=== PATIENT | male | born 1975 | race Caucasian/White ===

== ENCOUNTER → 2019-02-18 10:08 | Outpatient (CLI) | payer OTHER, SELFPAY ==
--- NOTE | 2019-02-18 | DI.RAD.S_ITS ---
PROCEDURE: XR SHOULDER LT MIN 2V INDICATIONS: left shoulder pain TECHNIQUE: 3 views of the shoulder were acquired. COMPARISON: None. FINDINGS: Bones: No fractures or dislocations. No suspicious bony lesions. Visualized ribs appear intact. Mild AC joint degeneration. There is also glenohumeral degenerative sclerosis and spurring. A possible sub-5 mm bone island projecting in the glenoid although cannot exclude loose body could be further assessed with cross-sectional imaging Soft tissues: No suspicious soft tissue calcifications. IMPRESSION: Possible glenoid bone island versus intra-articular loose body. This could be further assessed with cross-sectional imaging as clinically warranted Left shoulder joint degeneration. If the patient's pain or other symptoms persist, consider further evaluation with MRI Dictated by: Mayo Hawkins M.D. on 02/18/2019 at 10:38 Approved by: Mayo Hawkins M.D. on 02/18/2019 at 10:40
== END ==
PROVIDERS: Visit Provider Family Medicine
DX: M25.512 Pain in left shoulder (principal); M19.012 Primary osteoarthritis, left shoulder
CPT/HCPCS: 73030

== ENCOUNTER 2019-11-23 12:45 | Outpatient (RCR) | payer OTHER, SELFPAY ==
--- NOTE | 2019-09-07 14:45 | PT.OIE ---
Current Diagnoses Left lower quadrant pain (09/01/19) Past Medical History (Last Updated 06/23/19 @ 10:31 by Jaqueline Gomez MD) Abdominal cramps (Acute) Abdominal pain (Acute) Anxiety (Acute) Gastroenteritis (Acute) GERD (gastroesophageal reflux disease) (Acute) Inguinal hernia (Acute) Lesion of skin of scalp (Acute) Neoplasm of skin (Acute) Peptic ulcer (Acute) Shoulder pain (Acute) Sinusitis (Acute) Urethritis (Acute) Visit Care Team Role Provider Type Sana Stuart MD Primary Care Provider Physician Specialty: Family Practice Address: [address] [place] [address], [facility] [place], [place], [facility] Email: [email or web address] Jaqueline Gomez MD Attending Provider Physician Referring Provider Specialty: General Surgery Address: [address] [place] [address] Email: [email or web address] Physical Therapy Initial Evaluation PT-OP-A Visit Information Start: 08/31/19 16:43 Freq: Status: Active Protocol: Document 09/01/19 10:16 [facility] (Rec: 09/01/19 10:27 [facility] [id number]) Out-Patient Physical Therapy Visit Information Visit Information Visit Type Initial Evaluation Visit Start Time 09:00 Visit Stop Time 09:50 Total Visit Minutes 50 Visit Number 1 Evaluation Information Evaluation Date 09/01/19 PT-OP-B Current Condition Start: 08/31/19 16:43 Freq: Status: Active Protocol: Document 09/01/19 10:16 [facility] (Rec: 09/01/19 10:27 [facility] [id number]) Current Condition History of Current Condition Onset Date March 2019 Current Complaints left sided groin pain History of Current Condition Haja reports that in March he woke up with pain in the left groin. He also had intestinal discomfort at the same time that included a bad bout of diarrhea that went on for a few days. 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 He was given a course of antibiotics that seemed to calm down his acute symptoms. At this point Haja reports he can experience sharp left sided groin pain after work related duties which at times can involve heavy lifting. Or even after lifting his kids at home. He can also have pain after running. He likes to run 4 miles 3-4 times per week. He had been experiencing pain with eccentric abdominal exercises which he has modified at this point to help relieve the pain . Lencho also reports that he has a history of psoas tightness and has had massage therapy for the psoas in the past. He notes that possibly his symptoms have been going on for longer but because he wasn't in acute pain he did really think about his symptoms. At this point he will try a course of PT prior to considering a surgical correction of the hernias. Prior Treatments and Tests History of colonoscopy in 2018 which was negative except for a few benign polyps. Treatment Goals Patient/Caregiver Goals Treatment goals for Haja include reducing left groin pain and allowing him to continue with his activities of running and work related activities. Current Functional Impairments (Reported) Functional Limitations- Recreation/ pain with heavy lifting Hobbies activities and after running activities PT-OP-F Manual Assessment Start: 08/31/19 16:43 Freq: Status: Active Protocol: Document 09/07/19 14:17 [facility] (Rec: 09/07/19 14:29 [facility] [id number]) Manual Assessments Soft Tissue Assessment Soft Tissue Mobility Assessment With manual examination today there is tightness in the left lower quadrant of the abdominal fascia and areas of the descending colon. There are restrictions in the iliopsoas in the region of the inguinal ligament. Tightness in the left quadriceps muscle and attachment at the ASIS PT-OP-J Posture/Palpation/Skin Start: 08/31/19 16:43 Freq: Status: Active Protocol: Document 09/07/19 14:17 [facility] (Rec: 09/07/19 14:29 [facility] [id number]) Palpation Assessment Location Three Palpation Location iliacus muscle Palpation Findings Soft Tissue Tightness, Tenderness Two Palpation Location psoas major Palpation Findings Soft Tissue Tightness, Tenderness One Palpation Location left side inguinal ligament tenderness Palpation Findings Tenderness PT-OP-K Range of Motion Start: 08/31/19 16:43 Freq: Status: Active Protocol: Document 09/07/19 14:17 [facility] (Rec: 09/07/19 14:29 [facility] [id number]) Lumbar Spine Range of Motion Lumbar Spine Active Testing Position Standing Comments WNL Hip Goniometric Range of Motion Hip Right Extension 15 Left Testing Position Supine Extension 10 Hip ROM Limitations Hip ROM Limitations Soft Tissue Tightness Comments decreased hip extension on the left as compared to the right PT-OP-T Assessment and Plan Start: 08/31/19 16:43 Freq: Status: Active Protocol: Document 09/06/19 14:17 [facility] (Rec: 09/07/19 14:29 [facility] [id number]) Physical Therapy Assessment Impairments Impairments Activity Tolerance,Functional Activities,Pain,ROM,Soft Tissue Mobility Goals Three Impairment Myofascial tightness in the left abdominal wall and left lower quadrant Crimp Setter Goal (LTG) Improve mobility of the fascia over the left side of the abdominal wall and pelvis to release any adhesions that may be resting ROM and creating pain in this region LTG Duration 8 weeks Two Impairment left anterior groin pain rated 2/10, aggravated with running and lifting Jail Goal (LTG) Slade notes a reduction of pain with MFR, stretches, and core stabilization exercises LTG Duration 8 weeks One Impairment decreased flexibility left greater than right iliopsoas, iliacus, quadriceps Short Term Goal (STG) Slade has been given a home stretching program for the left anterior hip to help take pressure off the anterior groin STG Duration 4 weeks Assessment Summary Assessment Slade presents to physical therapy today with symptoms of left sided lower abdomen and groin pain since March 2019. He did have a CT scan which showed no clear indication for his pain but did show 2 small injuinal hernias consistent with spermatic cord lipomas. He was initially treated with rest and NSAIDS's for inguinal ligament strain which did help some but hasn't fully resolved his pain. He does note that at the time of pain he also had a bout of gastrointestional symptoms and was diagnosed with diverticulitis. He does still complain of intermittent bloating. His pain does increase after running and with heavy lifting activities. With examination today I am unable to feel a bulge in the inguinal region with abdominal tighening. He is however restricted in the fascia in the left abdominal quadrant, area of the sigmoid colon, and his posoas major is tight and guarded. He does have decreased hip extension on the left as compared to the right . Slade was given a hip stretch today to try and lengthen the aimee major that runs under the inguinal ligament. I also began working on core stabilization. Slade may also benefit from working on releasing the fascia in the abdominal wall especially on the left side where he is tight. I will also work on releasing his quads as the attach at the ASIS where the inguinal ligament also attaches. Physical Therapy Plan Frequency and Duration Frequency of Treatment 2x/Week Duration of Treatment 8 Plan of Care Start Date 09/07/19 Plan of Care End Date 11/02/19 Therapeutic Interventions Therapeutic Interventions Home Exercise Program,Manual Therapy,Neuromuscular Re- education,Patient/Caregiver Education,Self-Care/Home Management,Soft Tissue Mobilization,Therapeutic Exercises Next Visit Focus/Plan Next Note Type Treatment Note Next Visit Plan begin with MFR over the left iliopsoas and lower abdominal wall, pt to be given hip stretches for hip for improved length of the iliopsoas. Pt will be educated on core stability exercises for SI joint stabilization.
--- NOTE | 2019-09-07 14:48 | PT.OPPOC ---
Physical, Occupational & Speech Therapy At [facility] Current Diagnoses Left lower quadrant pain (09/01/19) Visit Care Team Role Provider Type Sana Stuart MD Primary Care Provider Physician Specialty: Family Practice Address: [address] [place] [address], [address], [place], [address] Email: [email or web address] Jaqueline Gomez MD Attending Provider Physician Referring Provider Specialty: General Surgery Address: [address] [place] [address], [address] Email: [email or web address] Plan Of Care PT-OP-T Assessment and Plan Start: 08/31/19 16:43 Freq: Status: Active Protocol: Document 09/06/19 14:17 [facility] (Rec: 09/07/19 14:29 [facility] [id number]) Physical Therapy Assessment Impairments Impairments Activity Tolerance,Functional Activities,Pain,ROM,Soft Tissue Mobility Goals Three Impairment Myofascial tightness in the left abdominal wall and left lower quadrant Intermediate Goal (LTG) Improve mobility of the fascia over the left side of the abdominal wall and pelvis to release any adhesions that may be resting ROM and creating pain in this region LTG Duration 8 weeks Two Impairment left anterior groin pain rated 2/10, aggravated with running and lifting Intermediate Goal (LTG) Slade notes a reduction of pain with MFR, stretches, and core stabilization exercises LTG Duration 8 weeks One Impairment decreased flexibility left greater than right iliopsoas, iliacus, quadriceps Short Term Goal (STG) Slade has been given a home stretching program for the left anterior hip to help take pressure off the anterior groin STG Duration 4 weeks Assessment Summary Assessment Slade presents to physical therapy today with symptoms of left sided lower abdomen and groin pain since March 2019. 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 He was initially treated with rest and NSAIDS's for inguinal ligament strain which did help some but hasn't fully resolved his pain. He does note that at the time of pain he also had a bout of gastro intestinal symptoms and was diagnosed with diverticulitis. He does still complain of intermittent bloating. His pain does increase after running and with heavy lifting activities. With examination today I am unable to feel a bulge in the inguinal region with abdominal tightening. He is however restricted in the fascia in the left abdominal quadrant, area of the sigmoid colon, and his psoas major is tight and guarded. He does have decreased hip extension on the left as compared to the right . Slade was given a hip stretch today to try and lengthen the psoas major that runs under the inguinal ligament. I also began working on core stabilization. Slade may also benefit from working on releasing the fascia in the abdominal wall especially on the left side where he is tight. I will also work on releasing his quads as the attach at the ASIS where the inguinal ligament also attaches. Physical Therapy Plan Frequency and Duration Frequency of Treatment 2x/Week Duration of Treatment 8 Plan of Care Start Date 09/07/19 Plan of Care End Date 11/02/19 Therapeutic Interventions Therapeutic Interventions Home Exercise Program,Manual Therapy,Neuromuscular Re- education,Patient/Caregiver Education,Self-Care/Home Management,Soft Tissue Mobilization,Therapeutic Exercises Next Visit Focus/Plan Next Note Type Treatment Note Next Visit Plan begin with MFR over the left iliopsoas and lower abdominal wall, pt to be given hip stretches for hip for improved length of the iliopsoas. Pt will be educated on core stability exercises for SI joint stabilization. Plan of Care Dates Plan of Care Start Date 09/07/19 Plan of Care End Date 11/02/19 Electronically Signed by: Nicole Pennington, PT 09/07/19 2384 Please Sign and Return: I have reviewed this Plan of Care and certify that the skilled therapy services above are required to meet the patient?s needs. Physician Signature Date Printed Name and Credentials Clinical Instructor Signature Printed Name and Credentials
--- NOTE | 2019-09-08 17:42 | PT.OTN ---
Current Diagnoses Left lower quadrant pain (09/08/19) Physical Therapy Treatment Note PT-OP-A Visit Information Start: 08/31/19 16:43 Freq: Status: Active Protocol: Document 09/08/19 17:35 [facility] (Rec: 09/08/19 17:42 [facility] [id number]) Out-Patient Physical Therapy Visit Information Visit Information Visit Type Treatment Note Visit Start Time 09:00 Visit Stop Time 09:45 Total Visit Minutes 45 Visit Number 2 PT-OP-B Current Condition Start: 08/31/19 16:43 Freq: Status: Active Protocol: Document 09/01/19 10:16 [facility] (Rec: 09/01/19 10:27 [facility] [id number]) Current Condition History of Current Condition Onset Date March 2019 Current Complaints left sided groin pain History of Current Condition Haja reports that in March he woke up with pain in the left groin. He also had intestional discomfort at the same time that included a bad bout of diarrhea that went on for a few days. 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 He was given a course of antibiotics that seemed to calm down his acute symptoms. At this point Haja reports he can experience shart left sided groin pain after work related duties which at times can involve heavy lifting. Or even after lifting his kids at home. He can also have pain after running. He likes to run 4 miles 3-4 times per week. He had been experiencing pain with eccentric abdominal exercises which he has modified at this point to help relieve the pain . Lencho also reports that he has a history of psoas tightness and has had massage therapy for the aimee in the past. He notes that possibly his symptoms have been going on for longer but because he wasn't in acute pain he did really think about his symptoms. At this point he will try a course of PT prior to considering a surgical correction of the hernias. Prior Treatments and Tests History of colonoscopy in 2018 which was negative except for a few benign polyps. Treatment Goals Patient/Caregiver Goals Treatment goals for Haja include reducing left groin pain and allowing him to continue with his activities of running and work related activities. Current Functional Impairments (Reported) Functional Limitations- Recreation/ pain with heavy lifting Hobbies activies and after running activities PT-OP-C Subjective Start: 08/31/19 16:43 Freq: Status: Active Protocol: Document 09/08/19 17:35 [facility] (Rec: 09/08/19 17:42 [facility] [id number]) OP-PT Subjective Patient Comments Patient Comments pt notes he tolerated the first visit well, no new complaints. He does note he is trying to space out his runs a bit more to every 3 days PT-OP-F Manual Assessment Start: 08/31/19 16:43 Freq: Status: Active Protocol: Document 09/07/19 14:17 [facility] (Rec: 09/07/19 14:29 [facility] [id number]) Manual Assessments Soft Tissue Assessment Soft Tissue Mobility Assessment With manua lexamination today there is tightness in the left lower quadrant of the abdominal fascia and areas of the descending colon. There are restrictions in the iliopsoas in the region of the inguinal ligament. Tightness in the left quadriceps muscle and attachment at the ASIS PT-OP-J Posture/Palpation/Skin Start: 08/31/19 16:43 Freq: Status: Active Protocol: Document 09/07/19 14:17 [facility] (Rec: 09/07/19 14:29 [facility] [id number]) Palpation Assessment Location Three Palpation Location iliacus muscle Palpation Findings Soft Tissue Tightness, Tenderness Two Palpation Location psoas major Palpation Findings Soft Tissue Tightness, Tenderness One Palpation Location left side inguinal ligament tenderness Palpation Findings Tenderness PT-OP-K Range of Motion Start: 08/31/19 16:43 Freq: Status: Active Protocol: Document 09/07/19 14:17 [facility] (Rec: 09/07/19 14:29 [facility] [id number]) Lumbar Spine Range of Motion Lumbar Spine Active Testing Position Standing Comments WNL Hip Goniometric Range of Motion Hip Right Extension 15 Left Testing Position Supine Extension 10 Hip ROM Limitations Hip ROM Limitations Soft Tissue Tightness Comments decreased hip extension on the left as compared to the right PT-OP-Q Treatments Start: 08/31/19 16:43 Freq: Status: Active Protocol: Document 09/08/19 17:35 [facility] (Rec: 09/08/19 17:42 [facility] [id number]) Therapeutic Exercises Supine Exercises 1 Supine Exercise Name luis test position iliopsoas stretch Prone Exercises 2 Prone Exercise Name prone quad stretch Manual Therapy Treatment Soft Tissue Mobilization 2 Body Location MFR over the left side of the abdominal wall 1 Body Location manual psoas release Mobilization Type Myofascial Release Intensity/Depth Moderate Body Position Supine Joint Mobilizations 1 Joint manual left hip decompression and inferior glides Manual Techniques 2 Type sidelying iliopsoas release and stretch 1 Type prone manual quad stretch Comments with contract relax PT-OP-T Assessment and Plan Start: 08/31/19 16:43 Freq: Status: Active Protocol: Document 09/08/19 17:35 [facility] (Rec: 09/08/19 17:42 [facility] [id number]) Physical Therapy Assessment Assessment Summary Assessment good tolerance today for stretches, right side actually tight as well so I encouraged stretching both sides for home. Worked on releasing near the ASIS attachment Physical Therapy Plan Frequency and Duration Frequency of Treatment 2x/Week Duration of Treatment 8 Plan of Care Start Date 09/07/19 Plan of Care End Date 11/02/19
--- NOTE | 2019-09-17 14:13 | PT.OTN ---
Current Diagnoses Left lower quadrant pain (09/15/19) Physical Therapy Treatment Note PT-OP-A Visit Information Start: 08/31/19 16:43 Freq: Status: Active Protocol: Document 09/15/19 09:00 [facility] (Rec: 09/17/19 14:12 [facility] [id number]) Out-Patient Physical Therapy Visit Information Visit Information Visit Type Treatment Note Visit Start Time 09:00 Visit Stop Time 09:45 Total Visit Minutes 45 Visit Number 3 PT-OP-B Current Condition Start: 08/31/19 16:43 Freq: Status: Active Protocol: Document 09/01/19 10:16 [facility] (Rec: 09/01/19 10:27 [facility] [id number]) Current Condition History of Current Condition Onset Date March 2019 Current Complaints left sided groin pain History of Current Condition Haja reports that in March he woke up with pain in the left groin. He also had intestional discomfort at the same time that included a bad bout of diarrhea that went on for a few days. 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 He was given a course of antibiotics that seemed to calm down his acute symptoms. At this point Haaj reports he can experience shart left sided groin pain after work related duties which at times can involve heavy lifting. Or even after lifting his kids at home. He can also have pain after running. He likes to run 4 miles 3-4 times per week. He had been experiencing pain with eccentric abdominal exercises which he has modified at this point to help relieve the pain . Lencho also reports that he has a history of psoas tightness and has had massage therapy for the aimee in the past. He notes that possibly his symptoms have been going on for longer but because he wasn't in acute pain he did really think about his symptoms. At this point he will try a course of PT prior to considering a surgical correction of the hernias. Prior Treatments and Tests History of colonoscopy in 2018 which was negative except for a few benign polyps. Treatment Goals Patient/Caregiver Goals Treatment goals for Haja include reducing left groin pain and allowing him to continue with his activities of running and work related activities. Current Functional Impairments (Reported) Functional Limitations- Recreation/ pain with heavy lifting Hobbies activies and after running activities PT-OP-C Subjective Start: 08/31/19 16:43 Freq: Status: Active Protocol: Document 09/15/19 09:00 [facility] (Rec: 09/17/19 14:12 [facility] [id number]) OP-PT Subjective Patient Comments Patient Comments pt reports overall he is doing well with his symptoms. He did have to reach to help pull up his daughter and felt a sharp pain that was short lived in duration PT-OP-F Manual Assessment Start: 08/31/19 16:43 Freq: Status: Active Protocol: Document 09/07/19 14:17 [facility] (Rec: 09/07/19 14:29 [facility] [id number]) Manual Assessments Soft Tissue Assessment Soft Tissue Mobility Assessment With manua lexamination today there is tightness in the left lower quadrant of the abdominal fascia and areas of the descending colon. There are restrictions in the iliopsoas in the region of the inguinal ligament. Tightness in the left quadriceps muscle and attachment at the ASIS PT-OP-J Posture/Palpation/Skin Start: 08/31/19 16:43 Freq: Status: Active Protocol: Document 09/07/19 14:17 [facility] (Rec: 09/07/19 14:29 [facility] [id number]) Palpation Assessment Location Three Palpation Location iliacus muscle Palpation Findings Soft Tissue Tightness, Tenderness Two Palpation Location psoas major Palpation Findings Soft Tissue Tightness, Tenderness One Palpation Location left side inguinal ligament tenderness Palpation Findings Tenderness PT-OP-K Range of Motion Start: 08/31/19 16:43 Freq: Status: Active Protocol: Document 09/07/19 14:17 [facility] (Rec: 09/07/19 14:29 [facility] [id number]) Lumbar Spine Range of Motion Lumbar Spine Active Testing Position Standing Comments WNL Hip Goniometric Range of Motion Hip Right Extension 15 Left Testing Position Supine Extension 10 Hip ROM Limitations Hip ROM Limitations Soft Tissue Tightness Comments decreased hip extension on the left as compared to the right PT-OP-Q Treatments Start: 08/31/19 16:43 Freq: Status: Active Protocol: Document 09/15/19 09:00 [facility] (Rec: 09/17/19 14:12 [facility] [email or web address]) Therapeutic Exercises Supine Exercises 1 Supine Exercise Name luis test position iliopsoas stretch Prone Exercises 2 Prone Exercise Name prone quad stretch Manual Therapy Treatment Soft Tissue Mobilization 2 Body Location MFR over the left side of the abdominal wall 1 Body Location manual psoas release Mobilization Type Myofascial Release Intensity/Depth Moderate Body Position Supine Manual Techniques 1 Type prone manual quad stretch Comments with contract relax Self-Care/Home Management Treatment Education Patient Education Home Exercise Program,Pain Management Other Education pt shown how to self release the psoas with prone lying alejandra PT-OP-T Assessment and Plan Start: 08/31/19 16:43 Freq: Status: Active Protocol: Document 09/15/19 09:00 [facility] (Rec: 09/17/19 14:12 [facility] [email or web address]) Physical Therapy Assessment Assessment Summary Assessment there is still myofascial tissue at the region of the psoas major as it passes under the inguinal ligament Physical Therapy Plan Frequency and Duration Frequency of Treatment 2x/Week Duration of Treatment 8 Plan of Care Start Date 09/07/19 Plan of Care End Date 11/02/19 Therapeutic Interventions Therapeutic Interventions Home Exercise Program,Manual Therapy,Neuromuscular Re- education,Patient/Caregiver Education,Self-Care/Home Management,Soft Tissue Mobilization,Therapeutic Exercises
--- NOTE | 2019-09-22 12:45 | PT.OTN ---
Current Diagnoses Left lower quadrant pain (09/22/19) Physical Therapy Treatment Note PT-OP-A Visit Information Start: 08/31/19 16:43 Freq: Status: Active Protocol: Document 09/22/19 08:57 [facility] (Rec: 09/22/19 08:57 [facility] [email or web address]) Out-Patient Physical Therapy Visit Information Visit Information Visit Type Treatment Note Visit Start Time 09:00 Visit Stop Time 09:45 Total Visit Minutes 45 Visit Number 4 PT-OP-B Current Condition Start: 08/31/19 16:43 Freq: Status: Active Protocol: Document 09/01/19 10:16 [facility] (Rec: 09/01/19 10:27 [facility] [id number]) Current Condition History of Current Condition Onset Date March 2019 Current Complaints left sided groin pain History of Current Condition Haja reports that in March he woke up with pain in the left groin. He also had intestional discomfort at the same time that included a bad bout of diarrhea that went on for a few days. 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 He was given a course of antibiotics that seemed to calm down his acute symptoms. At this point Haja reports he can experience shart left sided groin pain after work related duties which at times can involve heavy lifting. Or even after lifting his kids at home. He can also have pain after running. He likes to run 4 miles 3-4 times per week. He had been experiencing pain with eccentric abdominal exercises which he has modified at this point to help relieve the pain . Lencho also reports that he has a history of psoas tightness and has had massage therapy for the aimee in the past. He notes that possibly his symptoms have been going on for longer but because he wasn't in acute pain he did really think about his symptoms. At this point he will try a course of PT prior to considering a surgical correction of the hernias. Prior Treatments and Tests History of colonoscopy in 2018 which was negative except for a few benign polyps. Treatment Goals Patient/Caregiver Goals Treatment goals for Haja include reducing left groin pain and allowing him to continue with his activities of running and work related activities. Current Functional Impairments (Reported) Functional Limitations- Recreation/ pain with heavy lifting Hobbies activies and after running activities PT-OP-C Subjective Start: 08/31/19 16:43 Freq: Status: Active Protocol: Document 09/22/19 12:39 [facility] (Rec: 09/22/19 12:45 [facility] [email or web address]) OP-PT Subjective Patient Comments Patient Comments pt reports no sharp pains this week. He does get some relief following PT visits PT-OP-F Manual Assessment Start: 08/31/19 16:43 Freq: Status: Active Protocol: Document 09/07/19 14:17 [facility] (Rec: 09/07/19 14:29 [facility] [id number]) Manual Assessments Soft Tissue Assessment Soft Tissue Mobility Assessment With manua lexamination today there is tightness in the left lower quadrant of the abdominal fascia and areas of the descending colon. There are restrictions in the iliopsoas in the region of the inguinal ligament. Tightness in the left quadriceps muscle and attachment at the ASIS PT-OP-J Posture/Palpation/Skin Start: 08/31/19 16:43 Freq: Status: Active Protocol: Document 09/07/19 14:17 [facility] (Rec: 09/07/19 14:29 [facility] [id number]) Palpation Assessment Location Three Palpation Location iliacus muscle Palpation Findings Soft Tissue Tightness, Tenderness Two Palpation Location psoas major Palpation Findings Soft Tissue Tightness, Tenderness One Palpation Location left side inguinal ligament tenderness Palpation Findings Tenderness PT-OP-K Range of Motion Start: 08/31/19 16:43 Freq: Status: Active Protocol: Document 09/07/19 14:17 [facility] (Rec: 09/07/19 14:29 [facility] [id number]) Lumbar Spine Range of Motion Lumbar Spine Active Testing Position Standing Comments WNL Hip Goniometric Range of Motion Hip Right Extension 15 Left Testing Position Supine Extension 10 Hip ROM Limitations Hip ROM Limitations Soft Tissue Tightness Comments decreased hip extension on the left as compared to the right PT-OP-Q Treatments Start: 08/31/19 16:43 Freq: Status: Active Protocol: Document 09/22/19 12:39 [facility] (Rec: 09/22/19 12:45 [facility] [email or web address]) Therapeutic Exercises Supine Exercises 3 Supine Exercise Name single knee to chest stretch 2 Supine Exercise Name windshield wipers to open up the from of the hip Reps/Minutes x 10 reps 1 Supine Exercise Name luis test position iliopsoas stretch Prone Exercises 2 Prone Exercise Name prone quad stretch Other Exercises 1 Other Exercise Name 1/2 kneeling iliopsoas stretch Comments with arms reaching over head Manual Therapy Treatment Soft Tissue Mobilization 2 Body Location MFR over the left side of the abdominal wall 1 Body Location manual psoas release Mobilization Type Myofascial Release Intensity/Depth Moderate Body Position Supine Manual Techniques 2 Type sidelying iliopsoas release and stretch 1 Type prone manual quad stretch Comments with contract relax PT-OP-T Assessment and Plan Start: 08/31/19 16:43 Freq: Status: Active Protocol: Document 09/22/19 12:39 [facility] (Rec: 09/22/19 12:45 [facility] [email or web address]) Physical Therapy Assessment Assessment Summary Assessment I was able to get deeper into the iliacus to release it today. Good tolerance for treatment Physical Therapy Plan Frequency and Duration Frequency of Treatment 2x/Week Duration of Treatment 8 Plan of Care Start Date 09/07/19 Plan of Care End Date 11/02/19 Next Visit Focus/Plan Next Note Type Treatment Note Next Visit Plan Review new stretches next visit, MFR techniques to release the tissue under the inguinal ligament
--- NOTE | 2019-09-27 13:35 | PT.OTN ---
Current Diagnoses Left lower quadrant pain (09/27/19) Physical Therapy Treatment Note PT-OP-A Visit Information Start: 08/31/19 16:43 Freq: Status: Active Protocol: Document 09/27/19 13:30 [facility] (Rec: 09/27/19 13:35 [facility] [id number]) Out-Patient Physical Therapy Visit Information Visit Information Visit Type Re-Evaluation Visit Start Time 09:00 Visit Stop Time 09:45 Total Visit Minutes 45 Visit Number 5 PT-OP-B Current Condition Start: 08/31/19 16:43 Freq: Status: Active Protocol: Document 09/01/19 10:16 [facility] (Rec: 09/01/19 10:27 [facility] [email or web address]) Current Condition History of Current Condition Onset Date March 2019 Current Complaints left sided groin pain History of Current Condition Haja reports that in March he woke up with pain in the left groin. He also had intestional discomfort at the same time that included a bad bout of diarrhea that went on for a few days. 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 He was given a course of antibiotics that seemed to calm down his acute symptoms. At this point Haja reports he can experience shart left sided groin pain after work related duties which at times can involve heavy lifting. Or even after lifting his kids at home. He can also have pain after running. He likes to run 4 miles 3-4 times per week. He had been experiencing pain with eccentric abdominal exercises which he has modified at this point to help relieve the pain . Lencho also reports that he has a history of psoas tightness and has had massage therapy for the aimee in the past. He notes that possibly his symptoms have been going on for longer but because he wasn't in acute pain he did really think about his symptoms. At this point he will try a course of PT prior to considering a surgical correction of the hernias. Prior Treatments and Tests History of colonoscopy in 2018 which was negative except for a few benign polyps. Treatment Goals Patient/Caregiver Goals Treatment goals for Haja include reducing left groin pain and allowing him to continue with his activities of running and work related activities. Current Functional Impairments (Reported) Functional Limitations- Recreation/ pain with heavy lifting Hobbies activies and after running activities PT-OP-C Subjective Start: 08/31/19 16:43 Freq: Status: Active Protocol: Document 09/27/19 13:30 [facility] (Rec: 09/27/19 13:35 [facility] [id number]) OP-PT Subjective Patient Comments Patient Comments no new complaints, he notes he has been sore a few days after work but didn't feel sore enough to ice it. He feels the stretches and manual therapy has been helping. PT-OP-F Manual Assessment Start: 08/31/19 16:43 Freq: Status: Active Protocol: Document 09/07/19 14:17 [facility] (Rec: 09/07/19 14:29 [facility] [id number]) Manual Assessments Soft Tissue Assessment Soft Tissue Mobility Assessment With manua lexamination today there is tightness in the left lower quadrant of the abdominal fascia and areas of the descending colon. There are restrictions in the iliopsoas in the region of the inguinal ligament. Tightness in the left quadriceps muscle and attachment at the ASIS PT-OP-J Posture/Palpation/Skin Start: 08/31/19 16:43 Freq: Status: Active Protocol: Document 09/07/19 14:17 [facility] (Rec: 09/07/19 14:29 [facility] [id number]) Palpation Assessment Location Three Palpation Location iliacus muscle Palpation Findings Soft Tissue Tightness, Tenderness Two Palpation Location psoas major Palpation Findings Soft Tissue Tightness, Tenderness One Palpation Location left side inguinal ligament tenderness Palpation Findings Tenderness PT-OP-K Range of Motion Start: 08/31/19 16:43 Freq: Status: Active Protocol: Document 09/07/19 14:17 [facility] (Rec: 09/07/19 14:29 [facility] [id number]) Lumbar Spine Range of Motion Lumbar Spine Active Testing Position Standing Comments WNL Hip Goniometric Range of Motion Hip Right Extension 15 Left Testing Position Supine Extension 10 Hip ROM Limitations Hip ROM Limitations Soft Tissue Tightness Comments decreased hip extension on the left as compared to the right PT-OP-Q Treatments Start: 08/31/19 16:43 Freq: Status: Active Protocol: Document 09/27/19 13:30 [facility] (Rec: 09/27/19 13:35 [facility] [id number]) Therapeutic Exercises Supine Exercises 3 Supine Exercise Name single knee to chest stretch 2 Supine Exercise Name windshield wipers to open up the from of the hip Reps/Minutes x 10 reps 1 Supine Exercise Name luis test position iliopsoas stretch Prone Exercises 1 Prone Exercise Name cobra 2 Prone Exercise Name prone quad stretch Other Exercises 3 Other Exercise Name shannon pose with arms stretched out in front and to the sides Comments to help with lat mobility, the Lats are tighter on the right 2 Other Exercise Name thoracic rotation (thread the needle) Reps/Minutes x 4 each side 1 Other Exercise Name 1/2 kneeling iliopsoas stretch Comments with arms reaching over head Manual Therapy Treatment Soft Tissue Mobilization 2 Body Location MFR over the left side of the abdominal wall 1 Body Location manual psoas release Mobilization Type Myofascial Release Intensity/Depth Moderate Body Position Supine Manual Techniques 2 Type sidelying iliopsoas release and stretch 1 Type prone manual quad stretch Comments with contract relax PT-OP-T Assessment and Plan Start: 08/31/19 16:43 Freq: Status: Active Protocol: Document 09/27/19 13:30 [facility] (Rec: 09/27/19 13:35 [facility] [id number]) Physical Therapy Assessment Assessment Summary Assessment trunk rotated to the left, lats are tighter on the right. Added in some trunk mobility and lat stretching exercises. Not as much tension in the iliacus today Physical Therapy Plan Frequency and Duration Frequency of Treatment 2x/Week Duration of Treatment 8 Plan of Care Start Date 09/07/19 Plan of Care End Date 11/02/19 Therapeutic Interventions Therapeutic Interventions Home Exercise Program,Manual Therapy,Neuromuscular Re- education,Patient/Caregiver Education,Self-Care/Home Management,Soft Tissue Mobilization,Therapeutic Exercises Next Visit Focus/Plan Next Note Type Treatment Note Next Visit Plan review new thoracic mobilizations next visit and continue with MFr over the hips and inguinal region
--- NOTE | 2019-10-26 15:49 | PT.OTN ---
Current Diagnoses Left lower quadrant pain (10/26/19) Physical Therapy Treatment Note PT-OP-A Visit Information Start: 08/31/19 16:43 Freq: Status: Active Protocol: Document 10/26/19 15:38 [facility] (Rec: 10/26/19 15:48 [facility] [id number]) Out-Patient Physical Therapy Visit Information Visit Information Visit Type Progress Note Visit Start Time 12:45 Visit Stop Time 13:13 Total Visit Minutes 45 Visit Number 6 Evaluation Information Evaluation Date 09/01/19 PT-OP-B Current Condition Start: 08/31/19 16:43 Freq: Status: Active Protocol: Document 09/01/19 10:16 [facility] (Rec: 09/01/19 10:27 [facility] [id number]) Current Condition History of Current Condition Onset Date March 2019 Current Complaints left sided groin pain History of Current Condition Haja reports that in March he woke up with pain in the left groin. He also had intestional discomfort at the same time that included a bad bout of diarrhea that went on for a few days. 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 He was given a course of antibiotics that seemed to calm down his acute symptoms. At this point Haja reports he can experience shart left sided groin pain after work related duties which at times can involve heavy lifting. Or even after lifting his kids at home. He can also have pain after running. He likes to run 4 miles 3-4 times per week. He had been experiencing pain with eccentric abdominal exercises which he has modified at this point to help relieve the pain . Lencho also reports that he has a history of psoas tightness and has had massage therapy for the aimee in the past. He notes that possibly his symptoms have been going on for longer but because he wasn't in acute pain he did really think about his symptoms. At this point he will try a course of PT prior to considering a surgical correction of the hernias. Prior Treatments and Tests History of colonoscopy in 2018 which was negative except for a few benign polyps. Treatment Goals Patient/Caregiver Goals Treatment goals for Haja include reducing left groin pain and allowing him to continue with his activities of running and work related activities. Current Functional Impairments (Reported) Functional Limitations- Recreation/ pain with heavy lifting Hobbies activies and after running activities PT-OP-C Subjective Start: 08/31/19 16:43 Freq: Status: Active Protocol: Document 10/26/19 15:38 [facility] (Rec: 10/26/19 15:48 [facility] [id number]) OP-PT Subjective Patient Comments Patient Comments Slade returns to PT today after not being seen for a month. He had a stretch where he was doing really well but did have a flare up this past week possibly with work related duty. He reports that with the stretches he has been given in PT he is able to alleviate 75% of his symptoms . Pain varies from 0-3 during the day PT-OP-F Manual Assessment Start: 08/31/19 16:43 Freq: Status: Active Protocol: Document 09/07/19 14:17 [facility] (Rec: 09/07/19 14:29 [facility] [id number]) Manual Assessments Soft Tissue Assessment Soft Tissue Mobility Assessment With manua lexamination today there is tightness in the left lower quadrant of the abdominal fascia and areas of the descending colon. There are restrictions in the iliopsoas in the region of the inguinal ligament. Tightness in the left quadriceps muscle and attachment at the ASIS PT-OP-J Posture/Palpation/Skin Start: 08/31/19 16:43 Freq: Status: Active Protocol: Document 09/07/19 14:17 [facility] (Rec: 09/07/19 14:29 [facility] [id number]) Palpation Assessment Location Three Palpation Location iliacus muscle Palpation Findings Soft Tissue Tightness, Tenderness Two Palpation Location psoas major Palpation Findings Soft Tissue Tightness, Tenderness One Palpation Location left side inguinal ligament tenderness Palpation Findings Tenderness PT-OP-K Range of Motion Start: 08/31/19 16:43 Freq: Status: Active Protocol: Document 09/07/19 14:17 [facility] (Rec: 09/07/19 14:29 [facility] [id number]) Lumbar Spine Range of Motion Lumbar Spine Active Testing Position Standing Comments WNL Hip Goniometric Range of Motion Hip Right Extension 15 Left Testing Position Supine Extension 10 Hip ROM Limitations Hip ROM Limitations Soft Tissue Tightness Comments decreased hip extension on the left as compared to the right PT-OP-Q Treatments Start: 08/31/19 16:43 Freq: Status: Active Protocol: Document 10/26/19 15:38 [facility] (Rec: 10/26/19 15:48 [facility] [id number]) Manual Therapy Treatment Soft Tissue Mobilization 2 Body Location MFR over the left side of the abdominal wall 1 Body Location manual psoas release Mobilization Type Myofascial Release Intensity/Depth Moderate Body Position Supine Manual Techniques 2 Type sidelying iliopsoas release and stretch 1 Type prone manual quad stretch Comments with contract relax PT-OP-T Assessment and Plan Start: 08/31/19 16:43 Freq: Status: Active Protocol: Document 10/26/19 15:38 [facility] (Rec: 10/26/19 15:48 [facility] [id number]) Physical Therapy Assessment Goals Three Impairment Myofascial tightness in the left abdominal wall and left lower quadrant Alf Goal (LTG) Improve mobiity of the fascia over the left side of the abdominal wall and pelvis to release any adhesions that may be resting ROM and creating pain in this region GOOD PROGRESS LTG Duration 8 weeks Two Impairment left anterior groin pain rated 2/10, aggravated with running and lifting Alf Goal (LTG) Slade notes a reduction of pain with MFR, stretches, and core stabilization exercises GOOD PROGRESS LTG Duration 8 weeks One Impairment decreased flexibility left greater than right iliopaos, iliacus, quadriceps Short Term Goal (STG) Slade has been given a home stretching program for the left anterior hip to help take pressure off the anterior groin. GOAL MET STG Duration 4 weeks Progress Towards Goals Progress Towards Goals Progressing Toward Goals Assessment Summary Assessment Slade has been seen for 6 visits in PT. Treament has focused on MFR of the iliopsoas and quadriceps tissue in the region of the illioinguinal ligament. We have also worked on diaphragmatic breathing and stabilization from the transverse abdominals and pelvic floor prior to lifting. He is doing really well with this stabilization except for times when there is a sudden movement he can't brace for. I have also worked on visceral release of the sigmoid colon as it runs along the left pelvic wall. Slade has mentioned some gastrional irritation as a symptom as well. Slade feels the stretching is helpling 75% and he wishes to contine to PT at this time. Physical Therapy Plan Frequency and Duration Frequency of Treatment 2x/Week Duration of Treatment 8 Plan of Care Start Date 10/26/19 Plan of Care End Date 12/22/19 Therapeutic Interventions Therapeutic Interventions Home Exercise Program,Manual Therapy,Neuromuscular Re- education,Patient/Caregiver Education,Self-Care/Home Management,Soft Tissue Mobilization,Therapeutic Exercises Next Visit Focus/Plan Next Note Type Treatment Note Next Visit Plan MFR over the hips and inguinal region, manual stretches for the iliopsoas.
--- NOTE | 2019-10-26 15:50 | PT.OPPOC ---
Physical, Occupational & Speech Therapy At [facility] Current Diagnoses Left lower quadrant pain (10/26/19) Visit Care Team Role Provider Type Sana Stuart MD Primary Care Provider Physician Specialty: Family Practice Address: [address] [place] [address], [address], [place], [address] Email: [email or web address] Jaqueline Gomez MD Attending Provider Physician Referring Provider Specialty: General Surgery Address: [address] [place] [address], [address] Email: [email or web address] Plan Of Care PT-OP-T Assessment and Plan Start: 08/31/19 16:43 Freq: Status: Active Protocol: Document 10/26/19 15:38 [facility] (Rec: 10/26/19 15:48 [facility] [id number]) Physical Therapy Assessment Goals Three Impairment Myofascial tightness in the left abdominal wall and left lower quadrant Historical Site Guide Goal (LTG) Improve mobility of the fascia over the left side of the abdominal wall and pelvis to release any adhesions that may be resting ROM and creating pain in this region GOOD PROGRESS LTG Duration 8 weeks Two Impairment left anterior groin pain rated 2/10, aggravated with running and lifting Half-Way Goal (LTG) Slade notes a reduction of pain with MFR, stretches, and core stabilization exercises GOOD PROGRESS LTG Duration 8 weeks One Impairment decreased flexibility left greater than right iliopsoas, iliacus, quadriceps Short Term Goal (STG) Slade has been given a home stretching program for the left anterior hip to help take pressure off the anterior groin. GOAL MET STG Duration 4 weeks Progress Towards Goals Progress Towards Goals Progressing Toward Goals Assessment Summary Assessment Slade has been seen for 6 visits in PT. Treatment has focused on MFR of the iliopsoas and quadriceps tissue in the region of the illioinguinal ligament. We have also worked on diaphragmatic breathing and stabilization from the transverse abdominals and pelvic floor prior to lifting. He is doing really well with this stabilization except for times when there is a sudden movement he can't brace for. I have also worked on visceral release of the sigmoid colon as it runs along the left pelvic wall. Slade has mentioned some gastro intestional irritation as a symptom as well. Slade feels the stretching is helping 75% and he wishes to continue to PT at this time. Physical Therapy Plan Frequency and Duration Frequency of Treatment 2x/Week Duration of Treatment 8 Plan of Care Start Date 10/26/19 Plan of Care End Date 12/22/19 Therapeutic Interventions Therapeutic Interventions Home Exercise Program,Manual Therapy,Neuromuscular Re- education,Patient/Caregiver Education,Self-Care/Home Management,Soft Tissue Mobilization,Therapeutic Exercises Next Visit Focus/Plan Next Note Type Treatment Note Next Visit Plan MFR over the hips and inguinal region, manual stretches for the iliopsoas. Plan of Care Dates Plan of Care Start Date 10/26/19 Plan of Care End Date 12/22/19 Electronically Signed by: Nicole Pennington, PT 10/26/19 [id number] Please Sign and Return: I have reviewed this Plan of Care and certify that the skilled therapy services above are required to meet the patient?s needs. Physician Signature Date Printed Name and Credentials Clinical Instructor Signature Printed Name and Credentials
--- NOTE | 2019-11-09 15:59 | PT.OTN ---
Current Diagnoses Left lower quadrant pain (11/09/19) Physical Therapy Treatment Note PT-OP-A Visit Information Start: 08/31/19 16:43 Freq: Status: Active Protocol: Document 11/09/19 12:45 [facility] (Rec: 11/13/19 15:59 [facility] [email or web address]) Out-Patient Physical Therapy Visit Information Visit Information Visit Type Treatment Note Visit Start Time 12:45 Visit Stop Time 13:30 Total Visit Minutes 45 Visit Number 7 PT-OP-B Current Condition Start: 08/31/19 16:43 Freq: Status: Active Protocol: Document 09/01/19 10:16 [facility] (Rec: 09/01/19 10:27 [facility] [email or web address]) Current Condition History of Current Condition Onset Date March 2019 Current Complaints left sided groin pain History of Current Condition Haja reports that in March he woke up with pain in the left groin. He also had intestional discomfort at the same time that included a bad bout of diarrhea that went on for a few days. 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 He was given a course of antibiotics that seemed to calm down his acute symptoms. At this point Haja reports he can experience shart left sided groin pain after work related duties which at times can involve heavy lifting. Or even after lifting his kids at home. He can also have pain after running. He likes to run 4 miles 3-4 times per week. He had been experiencing pain with eccentric abdominal exercises which he has modified at this point to help relieve the pain . Lencho also reports that he has a history of psoas tightness and has had massage therapy for the aimee in the past. He notes that possibly his symptoms have been going on for longer but because he wasn't in acute pain he did really think about his symptoms. At this point he will try a course of PT prior to considering a surgical correction of the hernias. Prior Treatments and Tests History of colonoscopy in 2018 which was negative except for a few benign polyps. Treatment Goals Patient/Caregiver Goals Treatment goals for Haja include reducing left groin pain and allowing him to continue with his activities of running and work related activities. Current Functional Impairments (Reported) Functional Limitations- Recreation/ pain with heavy lifting Hobbies activies and after running activities PT-OP-C Subjective Start: 08/31/19 16:43 Freq: Status: Active Protocol: Document 11/09/19 12:45 [facility] (Rec: 11/13/19 15:59 [facility] [email or web address]) OP-PT Subjective Patient Comments Patient Comments pt reports he had a flare up again of his symptoms, he also feels he is having some digestive issues at this time too. He is still considering hernia repair as he worries he will do something to make it worse PT-OP-F Manual Assessment Start: 08/31/19 16:43 Freq: Status: Active Protocol: Document 09/07/19 14:17 [facility] (Rec: 09/07/19 14:29 [facility] [id number]) Manual Assessments Soft Tissue Assessment Soft Tissue Mobility Assessment With manua lexamination today there is tightness in the left lower quadrant of the abdominal fascia and areas of the descending colon. There are restrictions in the iliopsoas in the region of the inguinal ligament. Tightness in the left quadriceps muscle and attachment at the ASIS PT-OP-J Posture/Palpation/Skin Start: 08/31/19 16:43 Freq: Status: Active Protocol: Document 09/07/19 14:17 [facility] (Rec: 09/07/19 14:29 [facility] [id number]) Palpation Assessment Location Three Palpation Location iliacus muscle Palpation Findings Soft Tissue Tightness, Tenderness Two Palpation Location psoas major Palpation Findings Soft Tissue Tightness, Tenderness One Palpation Location left side inguinal ligament tenderness Palpation Findings Tenderness PT-OP-K Range of Motion Start: 08/31/19 16:43 Freq: Status: Active Protocol: Document 09/07/19 14:17 [facility] (Rec: 09/07/19 14:29 [facility] [id number]) Lumbar Spine Range of Motion Lumbar Spine Active Testing Position Standing Comments WNL Hip Goniometric Range of Motion Hip Right Extension 15 Left Testing Position Supine Extension 10 Hip ROM Limitations Hip ROM Limitations Soft Tissue Tightness Comments decreased hip extension on the left as compared to the right PT-OP-Q Treatments Start: 08/31/19 16:43 Freq: Status: Active Protocol: Document 11/09/19 12:45 [facility] (Rec: 11/13/19 15:59 [facility] [id number]) Manual Therapy Treatment Soft Tissue Mobilization 2 Body Location MFR over the left side of the abdominal wall 1 Body Location manual psoas release Mobilization Type Myofascial Release Intensity/Depth Moderate Body Position Supine Manual Techniques 2 Type sidelying iliopsoas release and stretch PT-OP-T Assessment and Plan Start: 08/31/19 16:43 Freq: Status: Active Protocol: Document 11/09/19 12:45 [facility] (Rec: 11/13/19 15:59 [facility] [email or web address]) Physical Therapy Assessment Assessment Summary Assessment pt was tender today in the region of the descending colon . I talked to him about how inflammation in his colon might also flare his hernia symptoms. He may wish to talk to a gastro intestional doctor to find out what is causing his intestional discomfort. Physical Therapy Plan Frequency and Duration Frequency of Treatment 2x/Week Duration of Treatment 8 Plan of Care Start Date 10/26/19 Plan of Care End Date 12/22/19 Therapeutic Interventions Therapeutic Interventions Home Exercise Program,Manual Therapy,Neuromuscular Re- education,Patient/Caregiver Education,Self-Care/Home Management,Soft Tissue Mobilization,Therapeutic Exercises Next Visit Focus/Plan Next Note Type Treatment Note Next Visit Plan Continue working on decrease fascial tightness and discomfort. MFR over the hips and inguinal region, manual stretches for the iliopsoas.
--- NOTE | 2019-11-24 09:32 | PT.OTN ---
Current Diagnoses Left lower quadrant pain (11/23/19) Physical Therapy Treatment Note PT-OP-A Visit Information Start: 08/31/19 16:43 Freq: Status: Active Protocol: Document 11/24/19 09:24 [facility] (Rec: 11/24/19 09:31 [facility] [email or web address]) Out-Patient Physical Therapy Visit Information Visit Information Visit Type Treatment Note Visit Start Time 12:45 Visit Stop Time 13:30 Total Visit Minutes 45 Visit Number 8 PT-OP-B Current Condition Start: 08/31/19 16:43 Freq: Status: Active Protocol: Document 09/01/19 10:16 [facility] (Rec: 09/01/19 10:27 [facility] [email or web address]) Current Condition History of Current Condition Onset Date March 2019 Current Complaints left sided groin pain History of Current Condition Haja reports that in March he woke up with pain in the left groin. He also had intestional discomfort at the same time that included a bad bout of diarrhea that went on for a few days. 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 He was given a course of antibiotics that seemed to calm down his acute symptoms. At this point Haja reports he can experience shart left sided groin pain after work related duties which at times can involve heavy lifting. Or even after lifting his kids at home. He can also have pain after running. He likes to run 4 miles 3-4 times per week. He had been experiencing pain with eccentric abdominal exercises which he has modified at this point to help relieve the pain . Lencho also reports that he has a history of psoas tightness and has had massage therapy for the aimee in the past. He notes that possibly his symptoms have been going on for longer but because he wasn't in acute pain he did really think about his symptoms. At this point he will try a course of PT prior to considering a surgical correction of the hernias. Prior Treatments and Tests History of colonoscopy in 2018 which was negative except for a few benign polyps. Treatment Goals Patient/Caregiver Goals Treatment goals for Haja include reducing left groin pain and allowing him to continue with his activities of running and work related activities. Current Functional Impairments (Reported) Functional Limitations- Recreation/ pain with heavy lifting Hobbies activies and after running activities PT-OP-C Subjective Start: 08/31/19 16:43 Freq: Status: Active Protocol: Document 11/24/19 09:24 [facility] (Rec: 11/24/19 09:31 [facility] [email or web address]) OP-PT Subjective Patient Comments Patient Comments Mike reports he wishes to consult with Dr Gomez for laproscopic procedure to close the hernia as he is still experiencing intermittent c/o symptoms. He has the least amount of pain when he is running but then things tighten up afterward. He has been working on all his stretches. PT-OP-F Manual Assessment Start: 08/31/19 16:43 Freq: Status: Active Protocol: Document 09/07/19 14:17 [facility] (Rec: 09/07/19 14:29 [facility] [id number]) Manual Assessments Soft Tissue Assessment Soft Tissue Mobility Assessment With manua lexamination today there is tightness in the left lower quadrant of the abdominal fascia and areas of the descending colon. There are restrictions in the iliopsoas in the region of the inguinal ligament. Tightness in the left quadriceps muscle and attachment at the ASIS PT-OP-J Posture/Palpation/Skin Start: 08/31/19 16:43 Freq: Status: Active Protocol: Document 09/07/19 14:17 [facility] (Rec: 09/07/19 14:29 [facility] [id number]) Palpation Assessment Location Three Palpation Location iliacus muscle Palpation Findings Soft Tissue Tightness, Tenderness Two Palpation Location psoas major Palpation Findings Soft Tissue Tightness, Tenderness One Palpation Location left side inguinal ligament tenderness Palpation Findings Tenderness PT-OP-K Range of Motion Start: 08/31/19 16:43 Freq: Status: Active Protocol: Document 09/07/19 14:17 [facility] (Rec: 09/07/19 14:29 [facility] [id number]) Lumbar Spine Range of Motion Lumbar Spine Active Testing Position Standing Comments WNL Hip Goniometric Range of Motion Hip Right Extension 15 Left Testing Position Supine Extension 10 Hip ROM Limitations Hip ROM Limitations Soft Tissue Tightness Comments decreased hip extension on the left as compared to the right PT-OP-Q Treatments Start: 08/31/19 16:43 Freq: Status: Active Protocol: Document 11/24/19 09:24 [facility] (Rec: 11/24/19 09:31 [facility] [email or web address]) Manual Therapy Treatment Soft Tissue Mobilization 2 Body Location MFR over the left side of the abdominal wall 1 Body Location manual psoas release Mobilization Type Myofascial Release Intensity/Depth Moderate Body Position Supine Manual Techniques 2 Type sidelying iliopsoas release and stretch 1 Type prone manual quad stretch Comments with contract relax PT-OP-T Assessment and Plan Start: 08/31/19 16:43 Freq: Status: Active Protocol: Document 11/24/19 09:24 [facility] (Rec: 11/24/19 09:31 [facility] [email or web address]) Physical Therapy Assessment Goals Three Impairment Myofascial tightness in the left abdominal wall and left lower quadrant Jail Goal (LTG) Improve mobiity of the fascia over the left side of the abdominal wall and pelvis to release any adhesions that may be resting ROM and creating pain in this region GOOD PROGRESS but tissue tightens back up again especially following running LTG Duration 8 weeks Two Impairment left anterior groin pain rated 2/10, aggravated with running and lifting Jail Goal (LTG) Slade notes a reduction of pain with MFR, stretches, and core stabilization exercises GOOD PROGRESS LTG Duration 8 weeks One Impairment decreased flexibility left greater than right iliopaos, iliacus, quadriceps Short Term Goal (STG) Slade has been given a home stretching program for the left anterior hip to help take pressure off the anterior groin. GOAL MET STG Duration 4 weeks Assessment Summary Assessment Today I am still feeling some tightness and restrictions in the region of the ilioinguinal ligament and iliopsoas. We have worked on lengthening the psoas and quads, core stabilization and MFR/visceral mobilization over the descending colon. Slade is still experiencing intermittent symptoms of pain in the left inguinal region with activity. He wished to seek consult for surgery. Physical Therapy Plan Discharge Physical Therapy Discharge Reasons Patient Request Discharge Comments Pt wishes to seek consult for surgery
--- NOTE | 2019-11-24 09:35 | PT.OPDS ---
Current Diagnoses Left lower quadrant pain (11/23/19) Visit Care Team Role Provider Type Sana Stuart MD Primary Care Provider Physician Specialty: Family Practice Address: [address], [address], [place], [address] Email: [email or web address] Jaqueline Gomez MD Attending Provider Physician Referring Provider Specialty: General Surgery Address: [address] [place] [address], [place], [address] Email: [email or web address] Visit Number Visit Number 8 Discharge Summary PT-OP-B Current Condition Start: 08/31/19 16:43 Freq: Status: Active Protocol: Document 09/01/19 10:16 [facility] (Rec: 09/01/19 10:27 [facility] [id number]) Current Condition History of Current Condition Onset Date March 2019 Current Complaints left sided groin pain History of Current Condition Haja reports that in March he woke up with pain in the left groin. He also had intestional discomfort at the same time that included a bad bout of diarrhea that went on for a few days. 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 He was given a course of antibiotics that seemed to calm down his acute symptoms. At this point Haja reports he can experience shart left sided groin pain after work related duties which at times can involve heavy lifting. Or even after lifting his kids at home. He can also have pain after running. He likes to run 4 miles 3-4 times per week. He had been experiencing pain with eccentric abdominal exercises which he has modified at this point to help relieve the pain . Lencho also reports that he has a history of psoas tightness and has had massage therapy for the aimee in the past. He notes that possibly his symptoms have been going on for longer but because he wasn't in acute pain he did really think about his symptoms. At this point he will try a course of PT prior to considering a surgical correction of the hernias. Prior Treatments and Tests History of colonoscopy in 2018 which was negative except for a few benign polyps. Treatment Goals Patient/Caregiver Goals Treatment goals for Haja include reducing left groin pain and allowing him to continue with his activities of running and work related activities. Current Functional Impairments (Reported) Functional Limitations- Recreation/ pain with heavy lifting Hobbies activies and after running activities PT-OP-C Subjective Start: 08/31/19 16:43 Freq: Status: Active Protocol: Document 11/24/19 09:24 [facility] (Rec: 11/24/19 09:31 [facility] [email or web address]) OP-PT Subjective Patient Comments Patient Comments Mike reports he wishes to consult with Dr Gomez for laproscopic procedure to close the hernia as he is still experiencing intermittent c/o symptoms. He has the least amount of pain when he is running but then things tighten up afterward. He has been working on all his stretches. PT-OP-F Manual Assessment Start: 08/31/19 16:43 Freq: Status: Active Protocol: Document 11/23/19 12:45 [facility] (Rec: 11/24/19 09:35 [facility] [email or web address]) Manual Assessments Soft Tissue Assessment Soft Tissue Mobility Assessment Tissue tightess has decreased in the quad and iliopsoas but there is a area in the sigmoid colon and ilioinguinal region that tends to tighten up following activities such as running. Slade is working hard on his home stretching program to open up the iliopsoas region. PT-OP-J Posture/Palpation/Skin Start: 08/31/19 16:43 Freq: Status: Active Protocol: Document 09/07/19 14:17 [facility] (Rec: 09/07/19 14:29 [facility] [id number]) Palpation Assessment Location Three Palpation Location iliacus muscle Palpation Findings Soft Tissue Tightness, Tenderness Two Palpation Location psoas major Palpation Findings Soft Tissue Tightness, Tenderness One Palpation Location left side inguinal ligament tenderness Palpation Findings Tenderness PT-OP-K Range of Motion Start: 08/31/19 16:43 Freq: Status: Active Protocol: Document 09/07/19 14:17 [facility] (Rec: 09/07/19 14:29 [facility] [id number]) Lumbar Spine Range of Motion Lumbar Spine Active Testing Position Standing Comments WNL Hip Goniometric Range of Motion Hip Right Extension 15 Left Testing Position Supine Extension 10 Hip ROM Limitations Hip ROM Limitations Soft Tissue Tightness Comments decreased hip extension on the left as compared to the right PT-OP-T Assessment and Plan Start: 08/31/19 16:43 Freq: Status: Active Protocol: Document 11/24/19 09:24 [facility] (Rec: 11/24/19 09:31 [facility] [email or web address]) Physical Therapy Assessment Goals Three Impairment Myofascial tightness in the left abdominal wall and left lower quadrant Brush Fabrication Supervisor Goal (LTG) Improve mobiity of the fascia over the left side of the abdominal wall and pelvis to release any adhesions that may be resting ROM and creating pain in this region GOOD PROGRESS but tissue tightens back up again especially following running LTG Duration 8 weeks Two Impairment left anterior groin pain rated 2/10, aggravated with running and lifting Brush Fabrication Supervisor Goal (LTG) Slade notes a reduction of pain with MFR, stretches, and core stabilization exercises GOOD PROGRESS LTG Duration 8 weeks One Impairment decreased flexibility left greater than right iliopaos, iliacus, quadriceps Short Term Goal (STG) Slade has been given a home stretching program for the left anterior hip to help take pressure off the anterior groin. GOAL MET STG Duration 4 weeks Assessment Summary Assessment Today I am still feeling some tightness and restrictions in the region of the ilioinguinal ligament and iliopsoas. We have worked on lengthening the psoas and quads, core stabilization and MFR/visceral mobilization over the descending colon. Slade is still experiencing intermittent symptoms of pain in the left inguinal region with activity. He wished to seek consult for surgery. Physical Therapy Plan Discharge Physical Therapy Discharge Reasons Patient Request Discharge Comments Pt wishes to seek consult for surgery
== END 2019-12-02 10:10 ==
LOC: PHYS 12:45
PROVIDERS: PCP Student in an Organized Health Care Education/Training Program; Referring Provider Surgery; Visit Provider Surgery
DX: R10.32 Left lower quadrant pain (principal)
CPT/HCPCS: 97110; 97140; 97161

== ENCOUNTER → 2019-12-18 13:13 | Outpatient (CLI) | payer OTHER, SELFPAY ==
[2019-12-19 15:06] LABS: COVID19 Sendout Not Detected (Not Detect)
== END ==
PROVIDERS: PCP Student in an Organized Health Care Education/Training Program; Visit Provider Physician Assistant
DX: Z01.812 Encounter for preprocedural laboratory examination (principal)
CPT/HCPCS: 87635

== ENCOUNTER 2019-12-21 11:02 | Day surgery (SDC) | payer OTHER, SELFPAY ==
[2019-12-19 15:24] VITALS: BMI 27.6
[2019-12-21] VITALS (10 sets, daily range): BP systolic 124–147; BP diastolic 79–95; PULSE 63–78; RESP 9–16; TEMP 36.4–37.2; O2SAT 94–98; BMI 27.6
--- NOTE | 2019-12-21 | PATH_ITS ---
[facility] Accession Number: [id number] . 01 Material submitted: . spermatic cord - LEFT SPERMATIC CORD LIPOMA . 01 Clinical history: . TOMMY INGUINAL HERNIA REPAIR . 02 Diagnosis: Left Spermatic Cord, Lipoma, Biopsy: Mature adipose tissue, consistent with lipoma. Negative for atypia or malignancy. MRV 12/23/2019 1021 Local . 02 Electronically signed: . Laurence Wayne MD, Pathologist NPI- [id number] . 01 Gross description: . The specimen is received in formalin, labeled left spermatic cord lipoma and consists of a 3.5 x 3.5 x 1.5 cm neal-yellow fragment of adipose tissue, which is inked blue and sectioned to reveal neal-yellow, lobulated cut surfaces. Engine Watchman sections are submitted in cassettes [id number]. ([id number]) /[facility] 12/22/2019 1641 Local . 02 Pathologist provided ICD-10: D17.6 . 02 CPT . 724372 Performed at: 01 [facility] [address], [place], [place] [id number] MD Apolinar Islas MD Phone: [phone] Performed at: 02 [facility] [address] [place], [place] [id number] MD Laurence Wayne MD Phone: [phone]
[2019-12-21] MEDS: LACTATED RINGERS 1,000 ML 100 ML IV (11:26)
--- NOTE | 2019-12-21 12:11 | PM.PREOP ---
Pre-operative Note COVID-19 COVID-19 status: Negative Result date/Date tested (Pos, Neg/Pending): 12/18/19 Interval Note History & Physical reviewed/Exam performed by Physician: Yes Changes to H&P: No
[2019-12-21] MEDS: CEFAZOLIN 2 GM/100 ML FROZ.PIGGY IV (12:21)
--- NOTE | 2019-12-21 12:57 | SUR.OPER ---
Supine on padded OR bed, head on pillow, both arms padded and tucked at sides, legs uncrossed, safety belt at thigh, tape over blanket over lower legs .
[2019-12-21] MEDS: BUPIVACAINE 0.25% W/ EPI 30 ML VIAL 60 ML INJ (13:06)
--- NOTE | 2019-12-21 15:02 | P.OP_ITS ---
Operative Date/Time/Diagnoses Date of procedure: 12/21/19 Time of procedure: 15:03 Pre-op diagnosis: Symptomatic inguinal hernias, left greater than right Post-op diagnosis: other (bilateral indirect inguinal hernias with cord lipoma) Procedure & Clinicians Procedure: Laparoscopic bilateral inguinal hernia repairs with Bard 3D max mesh Same procedure as scheduled: Yes Indications: Groin pain, bilateral inguinal hernias Surgeon: Jaqueline Gomez Anesthesia Type: General Operative Notes Findings: Deep indirect left inguinal hernia defect with a large spermatic cord lipoma. Moderate indirect right inguinal hernia defect with small spermatic cord lipoma Specimen(s): other (Spermatic cord lipoma) Prosthetic devices, grafts, tissues, transplants, or devices: Bard 3DMax mesh, medium size left and right Estimated Blood Loss (mL): 5 Procedure in detail: The patient was brought into the operating room and placed supine on the OR table. Sequential compression devices were placed on both legs and turned on. Appropriate perioperative antibiotics were given prior to the start of surgery. General anesthesia was induced the patient was intubated. A Burns catheter was placed sterilely in the bladder. The abdomen was prepped and draped in sterile fashion. Surgical time-out was conducted. Local anesthetic was injected under the skin just superior to the umbilicus and a 5 mm vertical incision was made at this site. The umbilical stalk was grasped with a Seth and elevated. A Veress needle was passed through the fascia into proper position. The position was tested with a saline drop test which was appropriate for intra-abdominal Veress needle placement. The abdomen was then insufflated in the usual fashion. Once insufflated to 15 mm Hg the Veress needle was removed and a 5 mm optical trocar was placed under direct vision using a 5 mm 30 degree scope. Once the camera was inside the abdomen I took a look around. There was no injury from port placement. Two additional ports were placed in a similar fashion in the right and left mid clavicular line at the level of the umbilicus, one handbreadth lateral to the umbilicus. The umbilical port was upsized to a 10mm port. Attention was then turned to the pelvis. Beginning on the left side local anesthetic was in the infiltrated into the abdominal wall using 0.25% Marcaine with epi, in the region of the expected peritoneal incision. Metzenbaum scissors attached to cautery were then used to incise the peritoneum transversely from the midline laterally to the ASIS, 10 cm superior to the inguinal hernia defect. The peritoneal flap was developed down to the inguinal canal. When I reached the defects I found a moderate indirect hernia with a large deep spermatic cord lipoma incarcerated within it. The incarcerated fat was reduced and ligated using a PDS endoloop. The lipoma was divided and rem ricky from the abdomen. Once the flap had been fully developed and the cord structures were completely exposed, and the hernia defect had been fully evaluated, I then exposed the pubic tubercle and pushed down the bladder so that there was space for good mesh placement. A large left side 3DMax macro porous mesh was then brought into the field. I placed it through the 10 mm port and positioned it within the surgical defect covering the direct, indirect, and femoral space with 5 cm overlap in each direction. I then secured the mesh to the pubic tubercle in 2 locations using dissolvable surgical tacks. I then secured the mesh to the abdominal wall at its superior edge, far away from the triangle of doom and the triangle of pain, avoiding the epigastric vessels. Once the mesh was secured in place I brought up the peritoneal flap. There was no clam shelling or bending of the mesh when the peritoneal flap was brought up. I then secured the peritoneum up to the abdominal wall using the same surgical tacker, with dissolvable tacks. There was no gapping of the peritoneal flap or exposed mesh. Attention was then turned to the right side. Local anesthetic was in the infiltrated into the abdominal wall using 0.25% Marcaine with epi, in the region of the expected peritoneal incision. Metzenbaum scissors attached to cautery were then used to incise the peritoneum transversely from the midline laterally to the ASIS, 10 cm superior to the inguinal hernia defect. The peritoneal flap was developed down to the inguinal hernia defect. When I reached the defect I found a moderate indirect hernia defect with incarcerated fat. The fat tissue was dissected free from the hernia defect. Once the flap had been fully developed and the cord structures were completely exposed, and the hernia defect had been fully evaluated, I then exposed the pubic tubercle and push down the bladder so that there was space for good mesh placement. A large 3DMax macro porous mesh was then brought into the field. I placed it through the 10 mm port and positioned it within the surgical defect covering the direct, indirect, and femoral space with 5 cm overlap in each direction. I then secured the mesh to the abdominal wall at its superior edge using dissolvable tacks, far away from the triangle of doom and the triangle of pain, avoiding the epigastric vessels as well. Once the mesh was secured in place I brought up the peritoneal flap. There was no clam shelling or bending of the mesh when the peritoneal flap was brought up. I then secured the peritoneum up to the abdominal wall using dissolvable tacks. There was no gapping of the peritoneal flap or exposed mesh. At this point the mesh was well positioned, secured, and well covered. There was no exposed mesh, no bleeding, and the peritoneal flaps were in good position. I then infiltrated the abdominal wall in the area of dissection with an additional 20 mL of Exparel, combined with the remaining local anesthetic for total of 80 mL of 0.25% Marcaine for the case. At this point the umbilical port site was closed with 0 Vicryl suture in the fascia using a Stuart-Zelalem suture Passer. Insufflation was then removed from the abdomen, and the umbilical port site was closed with 3-0 Vicryl in the subcutaneous layers, and 4 Monocryl in the skin. The other 2 port sites were closed with 4 Monocryl in the skin. Each port site was sealed with Dermabond. Local anesthetic was given at each of the port sites and in the fascia. This concluded the procedure. At this point the needle sponge and instrument counts were correct. Patient was awakened from anesthesia and extubated. The Burns catheter was removed, and the testicles were brought down to ensure they were in proper position. The patient was transferred to the postanesthesia care unit in stable condition. Complications: none Post-operative Condition: stable Disposition: PACU
[2019-12-21] MEDS: fentaNYL 100 MCG/2 ML INJ IV ×2 (15:05→15:17)
--- NOTE | 2019-12-21 15:12 | SUR.PHASEI ---
Patient arrived in PACU extremely restless and started trying to climb out of bed. Patient given IV fentanyl to help relax.
[2019-12-21] MEDS: OXYCODONE IR 5 MG TABLET PO (15:27)
--- NOTE | 2019-12-21 15:34 | SUR.PHASEI ---
Patient more awake and relaxed. Toleratin po. Denies pain. Tolerating po.
--- NOTE | 2019-12-21 15:52 | SUR.PHASEI ---
Patients surgical sites clean and dry. Minimal bruising. No drainage. Gave po pain medication prophylactically.
== END 2019-12-21 16:27 | disposition home or self-care (01) ==
PROVIDERS: PCP Student in an Organized Health Care Education/Training Program; Referring Provider Surgery; Visit Provider Surgery
PROC: 0YQ64ZZ Repair Left Inguinal Region, Percutaneous Endoscopic Approach (ICD-10-PCS; CPT 49650; principal; 2019-12-21 12:45)
DX: K40.20 Bilateral inguinal hernia, without obstruction or gangrene, not specified as recurrent (principal); D17.6 Benign lipomatous neoplasm of spermatic cord
CPT/HCPCS: 49650; C1781; J0690; J1100; J1885; J2405; J2704; J3010

== ENCOUNTER → 2020-03-19 14:19 | Outpatient (CLI) | payer OTHER, SELFPAY ==
[2020-03-19 15:11] LABS: COVID19 -Nasal RAPID Negative (Negative)
== END ==
PROVIDERS: PCP Student in an Organized Health Care Education/Training Program; Visit Provider Physician Assistant
DX: Z20.822 Contact with and (suspected) exposure to COVID-19 (principal)
CPT/HCPCS: 87635

== ENCOUNTER → 2020-05-17 09:38 | Outpatient (CLI) | payer OTHER, SELFPAY ==
[2020-05-17] MEDS: COVID-19 VACC #1, MRNA(MOD) 100 MCG/0.5 ML VIAL IM (09:43)
== END ==
PROVIDERS: PCP Student in an Organized Health Care Education/Training Program; Visit Provider Internal Medicine
DX: Z23 Encounter for immunization (principal)
CPT/HCPCS: 0011A; 91301

== ENCOUNTER → 2020-06-07 09:09 | Outpatient (CLI) | payer OTHER, SELFPAY ==
--- NOTE | 2020-06-07 09:13 | DI.RAD.S_ITS ---
PROCEDURE: XR ELBOW LT MIN 3V INDICATIONS: LT SHOULDER/ELBOW PAIN TECHNIQUE: 3 views of the elbow were acquired. COMPARISON: None. FINDINGS: Bones: No fractures or dislocations. No suspicious bony lesions. Soft tissues: No elbow joint effusion. No suspicious soft tissue calcifications. IMPRESSION: No acute osseous abnormalities. If clinical symptoms persist or clinical suspicion for pathology is high, a repeat examination in 7-10 days, or advanced imaging such as CT or MRI is suggested for further evaluation. Dictated by: Teddy Mathur M.D. on 06/07/2020 at 12:11 Approved by: Teddy Mathur M.D. on 06/07/2020 at 12:12
--- NOTE | 2020-06-07 09:13 | DI.RAD.S_ITS ---
PROCEDURE: XR SHOULDER LT MIN 2V INDICATIONS: LT SHOULDER/ELBOW PAIN TECHNIQUE: 3 views of the shoulder were acquired. COMPARISON: [facility], CR, XR SHOULDER LT MIN 2V, 02/18/2019, 10:10. FINDINGS: Bones: No fractures or dislocations. No suspicious bony lesions. There are mild osteoarthritic changes at the acromioclavicular and glenohumeral joint. A small 5 mm oval shaped hyperdensity projecting to the glenoid. Visualized ribs appear intact. Soft tissues: No suspicious soft tissue calcifications. IMPRESSION: 1. Mild osteoarthritis. 2. A bone island or intra-articular body projecting over the glenoid. If clinical symptoms persist or clinical suspicion for internal derangement is high, MRI is suggested for further evaluation. Dictated by: Teddy Mathur M.D. on 06/07/2020 at 12:13 Approved by: Teddy Mathur M.D. on 06/07/2020 at 12:20
== END ==
PROVIDERS: PCP Student in an Organized Health Care Education/Training Program; Referring Provider Student in an Organized Health Care Education/Training Program; Visit Provider Student in an Organized Health Care Education/Training Program
DX: M79.622 Pain in left upper arm (principal); M19.012 Primary osteoarthritis, left shoulder
CPT/HCPCS: 73030; 73080

== ENCOUNTER → 2020-06-14 09:09 | Outpatient (CLI) | payer OTHER, SELFPAY ==
[2020-06-14] MEDS: COVID-19 VACC #2, MRNA(MOD) 100 MCG/0.5 ML VIAL IM (09:19)
== END ==
PROVIDERS: PCP Student in an Organized Health Care Education/Training Program; Visit Provider Internal Medicine
DX: Z23 Encounter for immunization (principal)
CPT/HCPCS: 0012A; 91301

== ENCOUNTER → 2020-06-17 08:32 | Outpatient (CLI) | payer OTHER, SELFPAY ==
--- NOTE | 2020-06-17 08:34 | DI.MRI.S_ITS ---
PROCEDURE: MR SHOULDER LT WO CON INDICATIONS: Pain in left upper arm TECHNIQUE: Noncontrast oblique coronal T2 fast spin echo with fat saturation, oblique sagittal T1 spin echo and T2 fast spin echo with fat saturation, axial T1 spin echo and T2 fast spin echo with fat saturation through the shoulder. COMPARISON: [facility], CR, XR SHOULDER LT MIN 2V, 06/07/2020, 9:21. FINDINGS: Image quality: Excellent. Rotator cuff: The supraspinatus, infraspinatus, and subscapularis tendons appear intact throughout. Sagittal images demonstrate no muscle atrophy. Bones and bursae: No bone marrow contusions or fractures. Mild acromioclavicular joint osteoarthritic degeneration. The acromion demonstrates downsloping contour, without an os acromiale. No pathologic subacromial-subdeltoid or subcoracoid bursal fluid is present. Capsule and soft tissues: There is a tear of the posterior labrum (axial images 11-13). No anterior labral tear, however there is a large, multiloculated paralabral cyst that measures approximately 1.6 x 2.8 x 3.8 centimeters concerning for occult anterior labral tear. The long head of the biceps tendon demonstrates normal location and morphology. The rotator interval appears normal, without fibrosis. The coracohumeral ligament is normal in thickness. IMPRESSION: 1. Posterior labral tear. 2. Large, multiloculated anterior paralabral cyst. No definite anterior labral tear is identified, however the finding is suspicious for occult anterior labral tear. If there is clinical concern for anterior labral tear MRI with benefit intra-articular gadolinium could be performed. 3. Mild acromioclavicular joint osteoarthritis. 4. Downsloping acromion. Dictated by: Soni Kendall MD, PhD on 06/18/2020 at 12:13 Approved by: Soni Kendall MD, PhD on 06/18/2020 at 13:32
== END ==
PROVIDERS: PCP Student in an Organized Health Care Education/Training Program; Referring Provider Student in an Organized Health Care Education/Training Program; Visit Provider Student in an Organized Health Care Education/Training Program
DX: M79.622 Pain in left upper arm (principal); S43.402A Unspecified sprain of left shoulder joint, initial encounter; M19.012 Primary osteoarthritis, left shoulder
CPT/HCPCS: 73221

== ENCOUNTER → 2021-01-02 09:28 | Outpatient (CLI) | payer OTHER, SELFPAY ==
[2021-01-02 12:43] LABS: COVID19 -Nasal RAPID Negative (Negative)
== END ==
PROVIDERS: PCP Student in an Organized Health Care Education/Training Program; Visit Provider Nurse Practitioner Family
DX: Z20.822 Contact with and (suspected) exposure to COVID-19 (principal)
CPT/HCPCS: 87635

== ENCOUNTER 2021-01-04 14:12 | Day surgery (SDC) | payer OTHER, SELFPAY ==
[2021-01-04] MEDS: LACTATED RINGERS 1,000 ML 200 ML IV (12:30)
--- NOTE | 2021-01-04 12:30 | P.OP.COLON_ITS ---
Operative Date/Time/Diagnoses Date of procedure: 01/04/21 Procedure Notes SCOAP/Timeout: 3:12 p.m. Procedure in detail: ENDOSCOPIST: Sana Stuart MD Sedation RN:Reinier Dinh RN Sedation start time: 3:12 p.m. Sedation end time: 3:33 p.m. PROCEDURE: Colonoscopy INDICATIONS: 1. History of colon polyps 2. Family history of colon polyps 3. Screening for colon cancer MEDICATION: Levsin 0.125 mg sublingual, incremental doses of Versed and fent anyl until appropriate level sedation achieved. ASA CLASS: 2 CECAL WITHDRAWAL TIME: 9 minutes COMPLICATIONS: None. EXTENT OF PROCEDURE: Cecum. QUALITY OF PREP: Good with portions of liquid stool. PROCEDURE: Prior to insertion of the colonoscope, a digital rectal examination was accomplished with circumferential palpation of the distal rectal mucosa without significant findings being noted. The high-definition pediatric colonoscope was passed into the rectum in the usual fashion and advanced over to the cecum without difficulty. The ileocecal valve, appendiceal stoma, and medial wall all could be inspected and no abnormalities were seen. ASCENDING COLON: J maneuver was produced in the cecum and the proximal folds of the ascending colon were carefully inspected to the hepatic flexure and no abnormalities were seen. As the colonoscope was withdrawn, care was taken to expose and inspect the haustral folds and no abnormalities were seen. HEPATIC FLEXURE: Normal, no polyps, diverticula or other abnormalities. TRANSVERSE COLON: Normal, no polyps, diverticula or other abnormalities. DESCENDING COLON: Normal, no polyps, diverticula or other abnormalities. SIGMOID COLON: Minor diverticulosis, otherwise, normal, no polyps, or other abnormalities. RECTUM: Normal. J maneuver was produced. There was no significant perianal disease. The J maneuver was broken. The remainder of the rectum was inspected and there was no external hemorrhoid disease. The scope was withdrawn. IMPRESSION: 1. Normal colonoscopy 2. Sigmoid diverticulosis, mild PLAN: 1. Repeat colonoscopy in 5 years. The possibility of a missed lesion including a malignancy has been discussed with the patient previously. Potential alarm symptoms have been discussed and should be reported immediately.
--- NOTE | 2021-01-04 12:31 | PM.HP.1 ---
History of Present Illness History of Present Illness Date Patient Seen: 01/04/21 Chief complaint: SCREENING COLONOSCOPY Narrative: 45 year old male comes in today for consideration of a screening colonoscopy. Has had one previous colonoscopy at outside facility on 12/31/17 with history of colon polyps, due for 3 year recall. There have been no lower GI symptoms suggesting disease such as change in bowel habits, bleeding, abdominal pain or anemia. He does have a family history of colon polyps. Overall health issues have been stable, including no major cardiac events for at least 6 weeks. PCP: Dr. Stuart Past Medical History: GERD Diverticulitis history Inguinal hernia-mild Dry eye lids Scalp dermatitis History of colon polyps Past Surgical History: Labrum repair 2017 Colonoscopy, 12/2017, indicated for family history of colon polyps, 3 year recall secondary to finding of polyps Spermatic cord lipoma repair with mesh placement, fall 2019 Left shoulder labrum repair, 07/26/20 Bilateral inguinal hernia repair, 2019 Family History: Mother 1945, HTN Father 1946 Siblings - sister 1972 - breast cancer, colon polyps Social History: Marital status - , Emma Occupation - [employer] , [employer] Children - 2 Education - Patient History Medical History Abdominal cramps Abdominal pain Anxiety Exposure to COVID-19 virus Gastroenteritis GERD (gastroesophageal reflux disease) Inguinal hernia Lesion of skin of scalp Neoplasm of skin Peptic ulcer Shoulder pain Sinusitis Urethritis URI (upper respiratory infection) Family & Social History Family History Mother Hypertension Sister Cancer Social History: household members spouse Tobacco & Substance use: Smoking Status Never smoker alcohol intake current Substance Use Type does not use Meds Home Medications and Allergies Home Medications Medication Instructions Recorded Confirmed Type hydroxyzine pamoate 50 mg capsule 50 mg PO Q DAY #0 11/26/11 03/27/20 History (Vistaril) mometasone 0.1 % topical cream 1 applictn TOP DAILY 06/23/19 03/27/20 History (Elocon) Allergies Allergy/AdvReac Type Severity Reaction Status Date / Time No Known Drug Allergies Allergy Verified 01/04/21 14:26 Review of Systems Review of Systems Narrative: All remaining ROS were reviewed and negative except as addressed. Exam Narrative Exam Narrative: GENERAL: Alert and oriented, appearing stated age and in no acute distress. HEENT: Head normocephalic/atraumatic. Extraocular movements intact. LUNGS: Clear to ausculation bilaterally, no wheezes, rhonchi or rales. CV: Normal S1 and S2 with regular rate and rhythm, no audible murmurs, rubs or gallops. ABDOMEN: Soft, non-tender, non-distended, no organomegaly. Positive bowel sounds. EXTREMITIES: No clubbing, cyanosis, or edema. NEURO: Cranial nerves II through XII grossly intact, no focal deficits. PSYCH: Alert and oriented x 3. SKIN: No concerning lesions. Assessment & Plan Assessment & Plan narrative: 1. Screening for colon cancer Plan for colonoscopy. The nature and character of the procedure as well as anticipated results were discussed. The possibility of not completing the procedure was also discussed. Possible complications including aspiration pneumonia, bleeding, perforation and reaction to medications either for sedation or preparation and missed lesions were discussed. Questions were answered and proceeding to the colonoscopy was elected. Informed consent signed. I sincerely appreciate the referral allowing me to participate in this patient's care. Please contact me with any questions or concerns. Time Spent With Patient Critical Care time: I spent a total of [] minutes of critical care time on this patient's care today; this time is exclusive of procedural time.
[2021-01-04] MEDS: HYOSCYAMINE 0.125 MG TABLET PO (14:25)
[2021-01-04 14:29] VITALS: BP 140/97; PULSE 79; RESP 16; TEMP 36.6; O2SAT 97; BMI 27.8
[2021-01-04] MEDS: ONDANSETRON 4 MG/2 ML INJ IV (15:35)
[2021-01-04] MEDS: MIDAZOLAM 5 MG/5 ML VIAL IV (15:36)
[2021-01-04 15:37] VITALS: BP 121/81; PULSE 73; RESP 16; TEMP 36.4; O2SAT 95
[2021-01-04] MEDS: fentaNYL 250 MCG/5 ML INJ IV (15:37)
--- NOTE | 2021-01-04 15:41 | SUR.PHASEI ---
Received to PACU after colonoscopy with sedation. Report received from HUSEYIN Carvajal.
[2021-01-04 15:42] VITALS: BP 131/87; PULSE 72; RESP 12; O2SAT 95
[2021-01-04 15:47] VITALS: BP 121/84; PULSE 65; RESP 12; O2SAT 95
[2021-01-04 15:51] VITALS: BP 118/79; PULSE 61; RESP 12; TEMP 36.6; O2SAT 95
[2021-01-04 15:55] VITALS: BP 120/77; PULSE 66; RESP 20; TEMP 36.3; O2SAT 98
== END 2021-01-04 16:10 | disposition home or self-care (01) ==
PROVIDERS: PCP Student in an Organized Health Care Education/Training Program; Referring Provider Student in an Organized Health Care Education/Training Program; Visit Provider Student in an Organized Health Care Education/Training Program
PROC: 0DJD8ZZ Inspection of Lower Intestinal Tract, Via Natural or Artificial Opening Endoscopic (ICD-10-PCS; CPT 45378; principal; 2021-01-04 15:15)
DX: Z12.11 Encounter for screening for malignant neoplasm of colon (principal); Z86.010 Personal history of colon polyps; K57.30 Diverticulosis of large intestine without perforation or abscess without bleeding
CPT/HCPCS: 45378; J2250; J2405; J3010

== ENCOUNTER → 2022-03-05 09:47 | Outpatient (CLI) | payer OTHER, SELFPAY ==
[2022-03-05 11:04] LABS: COVID19 -Nasal RAPID Negative (Negative)
== END ==
PROVIDERS: Radiology Diagnostic Radiology; PCP Student in an Organized Health Care Education/Training Program; Referring Provider Registered Nurse; Visit Provider Registered Nurse
DX: Z20.822 Contact with and (suspected) exposure to COVID-19 (principal)
CPT/HCPCS: 87635; C9803

== ENCOUNTER → 2022-03-06 07:54 | Outpatient (CLI) | payer OTHER, SELFPAY ==
--- NOTE | 2022-03-06 | DI.NM.S_ITS ---
PROCEDURE: NM EXERCISE TREADMILL NON NUC COMPARISON: None. INDICATIONS: Elevated blood-pressure reading FINDINGS: the patient exercised for 11 minutes and 11 seconds reaching 98% of maximum predicted heart rate. Borderline hypertensive response to exercise (resting BP 132/90mmHg, max BP 202/120mmHg). Average exercise capacity (12.8METs, JANNA 0%). No angina, no diagnostic ST changes, and no ectopy with exercise or during recovery. IMPRESSION: Low risk, normal treadmill ECG only stress test with average exercise tolerance (JANNA 0%). Borderline hypertensive response to exercise (resting BP 132/90mmHg, max BP 202/120mmHg). Dictated by: Paola Keller MD on 03/06/2022 at 12:30 Approved by: Paola Keller MD on 03/06/2022 at 12:33
== END ==
PROVIDERS: PCP Registered Nurse; Referring Provider Registered Nurse; Visit Provider Registered Nurse
DX: R03.0 Elevated blood-pressure reading, without diagnosis of hypertension (principal)
CPT/HCPCS: 93017

== ENCOUNTER 2022-05-08 20:24 | Emergency (ER) | payer OTHER, SELFPAY ==
[2022-05-08 20:31] VITALS: BP 163/110; PULSE 72; RESP 14; TEMP 36.9; O2SAT 98; BMI 27.8
[2022-05-08] MEDS: PROPARACAINE 0.5% OPHTH SOL 1 DROPS EYE-RIGHT (22:05)
[2022-05-08] MEDS: FLUORESCEIN 1 MG STRIP EYE-RIGHT (22:06)
[2022-05-08 22:08] VITALS: PULSE 82; O2SAT 97
[2022-05-08 22:10] VITALS: BP 168/111; PULSE 75; O2SAT 99
--- NOTE | 2022-05-08 22:12 | ED_ITS ---
HPI - Eye Problem General Chief complaint: Eye Problems Stated complaint: rt eye injury Time Seen by Provider: 05/08/22 22:10 Source: patient Mode of arrival: Ambulatory History of Present Illness HPI Narrative: 46-year-old male nonsmoker with noncontributory medical history presents with a chief complaint of a right eye injury just prior to arrival. He states he was playing with his daughter using a nerve gone when she accidentally shot him in his right eye. He has pain and the sensation of a scratch, injury or foreign body in the left upper medial part of his visual field on his right eye. He denies contacts or corrective lenses. His tetanus is up-to-date. He is otherwise well and free of complaint Related Data Home Medications Medication Instructions Recorded Confirmed hydroxyzine pamoate 50 mg capsule 50 mg PO Q DAY ##0 11/26/11 03/27/20 (Vistaril) mometasone 0.1 % topical cream 1 applictn topical DAILY 06/23/19 03/27/20 (Elocon) Allergies Allergy/AdvReac Type Severity Reaction Status Date / Time ofloxacin [From Floxin] Allergy Severe Swelling Verified 05/08/22 20:35 of Lip/Tongue/Throat Review of Systems Review of Systems Narrative: GENERAL: Denies chills, fatigue, malaise, fever, sweats. HEENT: See HPI RESPIRATORY: Denies dyspnea, cough, wheezing, hemoptysis, sputum. CARDIOVASCULAR: Denies chest pain, palpitations, orthopnea, edema, GASTROINTESTINAL: Denies nausea, vomiting, abdominal pain, diarrhea, constipation, melena. : Denies dysuria, frequency, incontinence, hematuria, urinary retention. MUSCULOSKELETAL: denies weakness, joint pain, or bony pain SKIN: Denies rash, skin lesions, or other NEUROLOGIC: Denies weakness, headache, numbness, change in speech, confusion, seizures, incoordination. PSYCHIATRIC: No concerning psychosocial issues. 12 point review of systems is negative except for those stated above Patient History Medical History Abdominal cramps Abdominal pain Anxiety Exposure to COVID-19 virus Gastroenteritis GERD (gastroesophageal reflux disease) Inguinal hernia Lesion of skin of scalp Neoplasm of skin Peptic ulcer Shoulder pain Sinusitis Urethritis URI (upper respiratory infection) Family History Mother Hypertension Sister Cancer Social History household members: spouse Smoking Status: Never smoker alcohol intake: current Smoking Status: Never smoker alcohol intake frequency: a few times a month Substance Use Type: does not use Exam Narrative Exam Narrative: GEN: AOx3 and in mild distress EYES: Pupils are equal, round, and reactive to light and accommodation. Extraoccular muscles are intact bilaterally. There is no subconjunctival hemo rrhage or exudate. Pain nearly completely resolves with the use of proparacaine. No foreign body noted, upper lid everted. No evidence of globe rupture. Fluorescein instilled and there is dye uptake at the 2 o'clock position consistent with corneal abrasion CHEST: Lungs are clear to auscultation bilaterally and free of wheezes, rales, or rhonchi. Heart rate is regular rhythm, there are no murmurs, clicks, rubs, or gallops. There is no chest wall tenderness. ABD: Abdomen is soft and nontender. There is no guarding or rebound. Bowel sounds are normal in all 4 quadrants. There is no mass or organomegaly. EXT: Full painless ROM of all extremities with no loss of sensation or strength. SKIN: Warm, pink, and dry. No erythema or rash Initial Vital Signs Initial Vital Signs: Vital Signs Temperature 98.4 F 05/08/22 20:31 Pulse Rate 72 05/08/22 20:31 Respiratory Rate 14 05/08/22 20:31 Blood Pressure 163/110 H 05/08/22 20:31 Pulse Oximetry 98 05/08/22 20:31 Oxygen Delivery Method Room Air 05/08/22 20:31 Course Orders Ordered: Discontinued Medications Fluorescein Sodium (Fluorescein 1 Mg Strip) 1 mg EYE-RIGHT NOW ONE Stop: 05/08/22 20:38 Last Admin: 05/08/22 22:06 Dose: 1 mg Documented By: RB Polymyxin/Trimethoprim Sulfate (Polymy B/Trimeth Ophth Prepack) 1 bottle MISC SEEINSTR ONE Stop: 05/08/22 22:24 Last Admin: 05/08/22 22:31 Dose: 1 bottle Documented By: TOR Proparacaine HCl (Proparacaine 0.5% Ophth Mellissa) 1 drops EYE-RIGHT PRN PRN PRN Reason: Pain, Mild (1-3) Last Admin: 05/08/22 22:05 Dose: 1 drops Documented By: RB Vital Signs Vital signs: Vital Signs - 8 hr 05/08/22 20:31 05/08/22 22:08 05/08/22 22:10 Temperature 98.4 F Pulse Rate 72 82 75 Respiratory Rate 14 Blood Pressure 163/110 H Pulse Oximetry 98 97 99 Oxygen Delivery Method Room Air 05/08/22 22:10 Temperature Pulse Rate Respiratory Rate Blood Pressure 168/111 H Pulse Oximetry Oxygen Delivery Method MDM - Eye Problem MDM Narrative Medical decision making narrative: [46] year old patient presents with eye injury Multiple etiologies for patient's symptoms considered including, but not limited to: [Foreign body, corneal abrasion versus other] Prior Charts reviewed in our EMR Primary Historian: patient Patient with right eye injury, reassuring history and physical exam, visual acuity noted on nurse's note. Does not use corrective lenses, tetanus up-to-date. Near-complete resolution of symptoms with proparacaine and corneal abrasion noted with the use of fluorescein. Patient's symptoms improved over duration of stay with above-stated therapies. Findings and discharge diagnosis discussed with patient/family followed by verbalization of understanding Return precautions discussed with patient/family whom verbalize understanding of diagnosis and plan Discharge Plan Departure Patient Disposition: Home Clinical Impression: Injury of conjunctiva and corneal abrasion of right eye w/o FB Instructions: DI for Corneal Abrasion Activity Restrictions/Additional Instructions: *You have been diagnosed with [corneal abrasion] *What to do: *Please use the two drops as directed [ ] Polytrim - 1 drop every 4 hours while awake until symptoms improve [ ] Proparacaine - as we discussed I have diluted this down to 0.05% (1/10th the strength) and you may use 1 drop every 45-60 minutes for no more than 48 hours *Please follow up with Dr. Patton, call for an appointment. Let them know you were seen in the Emergency Department and that we ask that you be seen in follow up. We will electronically transmit a record of today's note *Return to Emergency Department if you should have any new, worsening or concerning symptoms, such as [fever greater than 101 F, shaking chills, worsening pain, persistent vomiting or other bothersome symptoms] Prescriptions: No Action hydroxyzine pamoate [Vistaril] 50 MG capsule 50 mg PO Q DAY Qty: 0 mometasone [Elocon] 0.1 % cream 1 applictn TOP DAILY Referrals: Chuckie Patton MD [Physician] - Lucy Ayala ARNP [Primary Care Provider] - Stand Alone Forms: Patient Portal/API
[2022-05-08] MEDS: POLYMY B/TRIMETH OPHTH PREPACK 1 BOTTLE MISC (22:31)
== END 2022-05-08 22:35 | disposition home or self-care (01) ==
PROVIDERS: Emergency Provider Emergency Medicine; PCP Registered Nurse
DX: S05.01XA Injury of conjunctiva and corneal abrasion without foreign body, right eye, initial encounter (principal); W22.8XXA Striking against or struck by other objects, initial encounter
CPT/HCPCS: 99282

== ENCOUNTER → 2022-11-13 09:45 | Outpatient (CLI) | payer OTHER, SELFPAY ==
[2022-11-13 10:44] LABS: Alanine Aminotransferase 28 IU/L (<50); Albumin 4.3 g/dL (3.5-5.0); Albumin Globulin Ratio 1.5 (1.0-2.8); Alkaline Phosphatase 60 U/L (38-126); Aspartate Aminotransferase 27 IU/L (17-59); BUN Creatinine Ratio 16.5 (6-22); Bilirubin Total 0.7 mg/dL (0.2-1.3); Blood Urea Nitrogen 14 mg/dL (9-20); Calcium 9.2 mg/dL (8.4-10.2); Carbon Dioxide 25 mmol/L (22-32); Chloride 103 mmol/L (98-107); Estimated Glomerular Filt Rate > 60 mL/min (>60); Globulin 2.9 g/dL (1.7-4.1); Glucose 91 mg/dL (70-100); HEMOLYSIS < 15 (0-50); Potassium 4.1 mmol/L (3.4-5.1); Sodium 139 mmol/L (137-145); Total Protein 7.2 g/dL (6.3-8.2)
[2022-11-13 10:47] LABS: Add Manual Diff / Slide Review NO; Basophils Absolute Auto 0 /uL (0-100); Basophils Percent Auto 0.6 % (0-2); Eosinophils Absolute Auto 100 /uL (0-450); Eosinophils Percent Auto 1.6 % (2-4); Hematocrit 45.7 % (41-53); Hemoglobin 15.8 g/dL (13.5-17.5); Lymphocytes Absolute Auto 1700 /uL (1100-4500); Lymphocytes Percent Auto 29.6 % (25-40); Mean Corpuscular HGB Conc 34.7 % (30-36); Mean Corpuscular Hemoglobin 29.2 PG (26-34); Mean Corpuscular Volume 84.2 fL (80-100); Monocytes Absolute Auto 400 /uL (0-900); Neutrophils Absolute Auto 3500 /uL (1500-7000); Neutrophils Percent Auto 61.2 % (50-75); Platelet Count 202 X10^3/uL (150-400); Red Blood Cell Count 5.43 X10^6/uL (4.5-5.9); White Blood Cell Count 5.7 X10^3/uL (4.5-11.0)
[2022-11-13 16:14] LABS: Hepatitis B Surface Antigen NEGATIVE s/c (NEGATIVE)
[2022-11-13 16:39] LABS: HIV 1 & 2 Ab/Ag 4th Gen Combo NEGATIVE (NEGATIVE); Hep C Virus Ab w/Reflex Quant NEGATIVE s/c (NEGATIVE)
[2022-11-14 03:21] LABS: Hepatitis B Surf AB Quant 93.7 mIU/mL (Immunity>9.9)
[2022-11-18 18:17] LABS: QuantiFERON Mitogen Value >10.00 IU/mL (.); QuantiFERON Nil Value 0.05 IU/mL (.); QuantiFERON TB Gold Plus Negative (Negative); QuantiFERON TB2 Ag Value 0.09 IU/mL (.)
== END ==
PROVIDERS: PCP Registered Nurse; Referring Provider Physician Assistant; Visit Provider Physician Assistant
DX: L40.0 Psoriasis vulgaris (principal)
CPT/HCPCS: 36415; 80053; 85025; 86480; 86706; 86803; 87340; 87389

== ENCOUNTER → 2023-04-08 07:08 | Outpatient (CLI) | payer OTHER, SELFPAY ==
--- NOTE | 2023-04-08 07:09 | DI.MRI.S_ITS ---
PROCEDURE: MR CERVICAL SPINE WO CON INDICATIONS: Cervicalgia TECHNIQUE: Noncontrast sagittal T1 spin echo and T2 fast spin echo, sagittal STIR, foraminal oblique sagittal T2 fast spin echo, and axial gradient echo or T2 fast spin echo through the cervical spine. COMPARISON: None. FINDINGS: Image quality: Excellent. Alignment and Curvature: Straightening of the normal cervical lordosis with mild reversal centered C3-C4. Bone Marrow: Marrow demonstrates normal overall signal. Spinal Cord: Visualized spinal cord has normal size and signal. No cerebellar tonsillar herniation. Paraspinous Soft Tissues: No paravertebral masses. Prevertebral soft tissues are normal in thickness. C2-C3: Normal appearance. C3-C4: Disc desiccation and posterior disc osteophyte complex. Mild central canal stenosis. Facet and uncovertebral arthropathy. Moderate right and mild left neural foraminal stenosis. C4-C5: Disc desiccation and posterior disc osteophyte complex. Mild central canal stenosis. Facet and uncovertebral arthropathy. [id number] bilateral neural foraminal stenosis. C5-C6: Disc desiccation and posterior disc osteophyte complex. Mild central canal stenosis. Facet and uncovertebral arthropathy. Moderate to severe right and [id number] left neural foraminal stenosis. C6-C7: No central canal or neural foraminal stenosis. C7-T1: No central canal or neural foraminal stenosis. IMPRESSION: 1. Multilevel degenerative changes of the cervical spine as described above. 2. There is mild multilevel central canal stenosis. 3. Moderate to severe right neural foraminal stenosis at C5-C6. Moderate right neural foraminal stenosis at C3-C4. Other levels of mild and moderate neural foraminal stenosis as above. Dictated by: Jc Black M.D. on 04/08/2023 at 9:01 Approved by: Jc Black M.D. on 04/08/2023 at 9:07
== END ==
LOC: MRI 07:08
PROVIDERS: PCP Registered Nurse; Referring Provider Orthopaedic Surgery; Visit Provider Orthopaedic Surgery
DX: M47.812 Spondylosis without myelopathy or radiculopathy, cervical region (principal); M48.02 Spinal stenosis, cervical region; M54.2 Cervicalgia
CPT/HCPCS: 72141

== ENCOUNTER → 2024-04-16 08:17 | Outpatient (CLI) | payer OTHER, SELFPAY ==
[2024-04-16 09:07] LABS: Add Manual Diff / Slide Review NO; Basophils Absolute Auto 0 /uL (0-100); Basophils Percent Auto 0.6 % (0-2); Eosinophils Absolute Auto 200 /uL (0-450); Eosinophils Percent Auto 2.6 % (2-4); Hematocrit 47.6 % (41-53); Lymphocytes Absolute Auto 1600 /uL (1100-4500); Lymphocytes Percent Auto 26.8 % (25-40); Mean Corpuscular HGB Conc 33.6 % (30-36); Mean Corpuscular Hemoglobin 29.4 PG (26-34); Mean Corpuscular Volume 87.6 fL (80-100); Monocytes Absolute Auto 500 /uL (0-900); Neutrophils Absolute Auto 3700 /uL (1500-7000); Platelet Count 228 X10^3/uL (150-400); Red Blood Cell Count 5.44 X10^6/uL (4.5-5.9); Red Cell Distribution Width 13.7 % (11.6-14.8); White Blood Cell Count 6.1 X10^3/uL (4.5-11.0)
[2024-04-18 18:28] LABS: HIV 1 & 2 Ab/Ag 4th Gen Combo NEGATIVE (NEGATIVE)
== END ==
LOC: LAB 08:19
PROVIDERS: PCP Registered Nurse; Referring Provider Internal Medicine Infectious Disease; Visit Provider Internal Medicine Infectious Disease
DX: Z22.7 Latent tuberculosis (principal); L40.50 Arthropathic psoriasis, unspecified
CPT/HCPCS: 36415; 85025; 87389

== ENCOUNTER → 2024-05-04 09:45 | Outpatient (CLI) | payer OTHER, SELFPAY ==
[2024-05-04 10:53] LABS: Add Manual Diff / Slide Review NO; Basophils Absolute Auto 100 /uL (0-100); Basophils Percent Auto 0.8 % (0-2); Eosinophils Absolute Auto 200 /uL (0-450); Eosinophils Percent Auto 2.9 % (2-4); Hematocrit 47.9 % (41-53); Hemoglobin 16.3 g/dL (13.5-17.5); Lymphocytes Absolute Auto 1500 /uL (1100-4500); Lymphocytes Percent Auto 23.9 % (25-40); Mean Corpuscular Hemoglobin 29.4 PG (26-34); Mean Corpuscular Volume 86.7 fL (80-100); Monocytes Absolute Auto 600 /uL (0-900); Monocytes Percent Auto 9.2 % (3-14); Neutrophils Absolute Auto 3900 /uL (1500-7000); Neutrophils Percent Auto 63.2 % (50-75); Platelet Count 261 X10^3/uL (150-400); Red Blood Cell Count 5.52 X10^6/uL (4.5-5.9); Red Cell Distribution Width 13.6 % (11.6-14.8); White Blood Cell Count 6.2 X10^3/uL (4.5-11.0)
[2024-05-04 11:09] LABS: Blood Urea Nitrogen 13 mg/dL (9-20); Carbon Dioxide 30 mmol/L (22-32); Chloride 101 mmol/L (98-107); HEMOLYSIS < 15 (0-50); Potassium 4.6 mmol/L (3.4-5.1); Sodium 139 mmol/L (137-145)
[2024-05-04 11:10] LABS: Alanine Aminotransferase 30 IU/L (<50); Albumin 4.5 g/dL (3.5-5.0); Albumin Globulin Ratio 1.7 (1.0-2.8); Alkaline Phosphatase 52 U/L (38-126); Aspartate Aminotransferase 35 IU/L (17-59); BUN Creatinine Ratio 15.3 (6-22); Bilirubin Total 0.6 mg/dL (0.2-1.3); Calcium 9.1 mg/dL (8.4-10.2); Estimated Glomerular Filt Rate > 60 mL/min (>60); Globulin 2.7 g/dL (1.7-4.1); Glucose 91 mg/dL (70-100); Total Protein 7.2 g/dL (6.3-8.2)
== END ==
LOC: LAB 09:46
PROVIDERS: PCP Registered Nurse; Referring Provider Internal Medicine Infectious Disease; Visit Provider Internal Medicine Infectious Disease
DX: Z22.7 Latent tuberculosis (principal)
CPT/HCPCS: 36415; 80053; 85025

== ENCOUNTER → 2024-06-07 16:08 | Outpatient (CLI) | payer OTHER, SELFPAY ==
[2024-06-07 16:34] LABS: Add Manual Diff / Slide Review NO; Basophils Absolute Auto 0 /uL (0-100); Basophils Percent Auto 0.6 % (0-2); Eosinophils Absolute Auto 200 /uL (0-450); Eosinophils Percent Auto 2.1 % (2-4); Hematocrit 45.1 % (41-53); Hemoglobin 15.3 g/dL (13.5-17.5); Lymphocytes Absolute Auto 1700 /uL (1100-4500); Lymphocytes Percent Auto 21.8 % (25-40); Mean Corpuscular HGB Conc 33.8 % (30-36); Mean Corpuscular Hemoglobin 29.3 PG (26-34); Mean Corpuscular Volume 86.6 fL (80-100); Monocytes Absolute Auto 600 /uL (0-900); Monocytes Percent Auto 7.4 % (3-14); Neutrophils Absolute Auto 5300 /uL (1500-7000); Neutrophils Percent Auto 68.1 % (50-75); Platelet Count 228 X10^3/uL (150-400); Red Blood Cell Count 5.21 X10^6/uL (4.5-5.9); Red Cell Distribution Width 14.2 % (11.6-14.8); White Blood Cell Count 7.8 X10^3/uL (4.5-11.0)
[2024-06-07 17:08] LABS: Alanine Aminotransferase 29 IU/L (<50); Albumin 4.3 g/dL (3.5-5.0); Albumin Globulin Ratio 1.8 (1.0-2.8); Alkaline Phosphatase 88 U/L (38-126); Aspartate Aminotransferase 31 IU/L (17-59); BUN Creatinine Ratio 26.9 (6-22); Bilirubin Total 0.4 mg/dL (0.2-1.3); Blood Urea Nitrogen 21 mg/dL (9-20); Calcium 9.1 mg/dL (8.4-10.2); Carbon Dioxide 23 mmol/L (22-32); Chloride 106 mmol/L (98-107); Estimated Glomerular Filt Rate > 60 mL/min (>60); Globulin 2.4 g/dL (1.7-4.1); Glucose 103 mg/dL (70-100); HEMOLYSIS < 15 (0-50); Sodium 138 mmol/L (137-145); Total Protein 6.7 g/dL (6.3-8.2)
== END ==
PROVIDERS: PCP Registered Nurse; Referring Provider Internal Medicine Infectious Disease; Visit Provider Internal Medicine Infectious Disease
DX: Z22.7 Latent tuberculosis (principal)
CPT/HCPCS: 36415; 80053; 85025

== ENCOUNTER → 2024-09-21 07:34 | Outpatient (CLI) | payer OTHER, SELFPAY ==
--- NOTE | 2024-09-21 07:37 | DI.US.S_ITS ---
PROCEDURE: US SOFT TISSUE ABDOMEN INDICATIONS: LEFT FLANK MASS TECHNIQUE: Real-time scanning was performed of the lower back palpable abnormality, with image documentation. COMPARISON: None. FINDINGS: Palpable abnormality at the lower back corresponds to a subcutaneous nodule measuring 3.3 x 2.9 x 0.7 cm. The nodule is isoechoic and mobile. The smooth. There is posterior through transmission. No hyperemia. No fluid collection. No adenopathy. IMPRESSION: Lower back subcutaneous nodule corresponds to a lipoma measuring 3.3 cm. Dictated by: Prabhjot Chan M.D. on 09/22/2024 at 21:49 Approved by: Prabhjot Chan M.D. on 09/22/2024 at 21:52
== END ==
LOC: US 07:34
PROVIDERS: PCP Registered Nurse; Referring Provider Registered Nurse; Visit Provider Registered Nurse
DX: R19.00 Intra-abdominal and pelvic swelling, mass and lump, unspecified site (principal); R22.2 Localized swelling, mass and lump, trunk
CPT/HCPCS: 76705